=== PATIENT | female | born 1945 | race Caucasian/White ===

== ENCOUNTER 2022-07-19 13:14 | Outpatient (CLI) | payer MEDICARE, OTHER, SELFPAY ==
--- NOTE | 2022-07-19 13:40 | CRLHL7_ITS ---
For Patients: As a result of the Cures Act, medical imaging exams and procedure reports are released immediately into your electronic medical record. You may view this report before your referring provider. If you have questions, please contact your health care provider. BILATERAL SCREENING MAMMOGRAM WITH COMPUTER-AIDED DETECTION AND TOMOSYNTHESIS TECHNIQUE: CC and MLO views were obtained. These mammographic images have been obtained using full-field digital technique. These mammographic images were interpreted with the benefit of computer-aided detection. Breast Tomosynthesis was used in this interpretation. COMPARISON FILM: 04/21/20, 03/06/18, 01/16/17. FINDINGS: There are scattered areas of fibroglandular density IMPRESSION: There is no radiographic evidence for malignancy. ASSESSMENT: BI-RADS Category 1: Negative RECOMMENDATION: Routine screening mammogram in 1 year. A lay language report of this examination will be provided to the patient. Ortega Washington M.D. Diagnostic Radiologist [email or web address] Transcribed: 2:05 p.pam carlson/Dictated by: Ortega Washington MD @ 07/20/2022 10:13:00 AM (Electronically Signed)
== END 2022-07-19 13:15 | disposition home or self-care (01) ==
LOC: MAMMO 13:15
PROVIDERS: PCP Internal Medicine; Visit Provider Internal Medicine
DX: Z12.31 Encounter for screening mammogram for malignant neoplasm of breast (principal)
CPT/HCPCS: 77063; 77067

== ENCOUNTER 2022-08-31 10:00 | Outpatient (CLI) | payer MEDICARE, OTHER, SELFPAY | END 2022-08-31 10:01 | disposition home or self-care (01) | PROVIDERS: PCP Internal Medicine; Visit Provider Internal Medicine | DX: R53.83 Other fatigue (principal); E78.5 Hyperlipidemia, unspecified; R73.03 Prediabetes; Z13.29 Encounter for screening for other suspected endocrine disorder; I10 Essential (primary) hypertension; M85.80 Other specified disorders of bone density and structure, unspecified site; G47.33 Obstructive sleep apnea (adult) (pediatric) | CPT/HCPCS: 82728; 84443 ==

== ENCOUNTER 2022-10-16 09:13 | Outpatient (CLI) | payer MEDICARE, OTHER, SELFPAY | END 2022-10-16 09:14 | disposition home or self-care (01) | LOC: NFLDREF 10-17 11:06 | PROVIDERS: PCP Internal Medicine; Referring Provider Internal Medicine; Visit Provider Internal Medicine | DX: R73.03 Prediabetes (principal); E78.5 Hyperlipidemia, unspecified; I10 Essential (primary) hypertension | CPT/HCPCS: 80061 ==

== ENCOUNTER 2023-04-20 08:44 | Outpatient (CLI) | payer MEDICARE, OTHER, SELFPAY | END 2023-04-20 08:45 | disposition home or self-care (01) | LOC: NFLDREF 04-23 08:04 | PROVIDERS: PCP Internal Medicine; Referring Provider Internal Medicine; Visit Provider Internal Medicine | DX: E78.5 Hyperlipidemia, unspecified (principal); I10 Essential (primary) hypertension; R73.03 Prediabetes | CPT/HCPCS: 80053; 80061 ==

== ENCOUNTER 2023-06-07 12:44 | Outpatient (RCR) | payer MEDICARE, OTHER, SELFPAY ==
--- NOTE | 2023-06-07 15:54 | PT.OPEX ---
PT [facility] PT [facility] Outpatient Eval Start: 06/07/23 11:04 Freq: Status: Active Protocol: Document 06/07/23 11:05 CRP (Rec: 06/07/23 15:49 CRP [id number]) E-signed By Zachery Barrios PT Physical Therapy Outpatient Evaluation Insurance Information Recert Due Date 09/05/23 Insurance Name Medicare B Medical Diagnosis Right shoulder rotator cuff tendinopathy Treating Diagnosis R shoulder pain R shoulder stiffness R shoulder weakness Referring MD Dr Augustine Subjective Subjective Pt reports that this Fall she began having R shoulder pain. Pain increases with raising her arm especially out to the side. Heat has been helpful at the shoulder. No numbness or tingling. Pain is moderate . Pt also reports several months of aching into bilateral thighs and down to the lower leg. Will times of burning pain. These sxs only seem to be at night. Also notes LBP that is there most of the time. Was working with a chiropractor. Current Work Status Retired Preferred Name Coco Objective Range of Motion Shoulder ROM AROM FLex L WNL, R 100 with pain Abd L WNL, R 110 with pain ER L WNL R WNL IR - hand up back to L1 with pain SHoulder PROM Flex 150 deg with pain Abd 155 deg with pain ER WNL IR 65 deg with pain Cervical ROM FLex WNL Ext min/mod dec R rot mod dec L rot Mod dec Strength MMT SHoulder abd R 4/5 with mild pain ER R 4/5 with mild pain IR R WNL Ext R WNL Palpation Palpable pain R interscap region Palpable pain R ant shoulder Sensation/Reflexes Sensation intact to light touch Other/Pertinent Objective Joint play: GH jt shows post and inf glide restriction Bilat ER resistance + for shoulder pain BIlat IR testing WNL Assessment Assessment/Impression Pt presents to the clinic with signs and sxs consistent with R RC tendinopathy and GH jt painful hypomobility. Skilled PT is necessary to incorporate ther ex, nm linda, manual therapy and pt education to decrease pain and improve functional mobility. Primary Functional Limitations Dressing Lifting reaching over head Plan of Care Rehabilitation Potential Excellent Physical Therapy Goals 1. Pt will be independent with HEP in 8 weeks. 2. Pt will don/doff clothing without pain in 10 weeks. 3. Pt will complete machine assembler with 80% decrease in pain in 12 weeks. Coordination/Communication With Referral Source Treatment Plan/Direct Interventions Joint Mobilization,Manual Therapy,Neuromuscular Re-ed, Self-Care/Home Management, Therapeutic Activities, Therapeutic Exercises Patient Will Be Discharged From Therapy Completion of LTG(s),Skills Plateau,Independent w/HEP, Independently Progressing Evaluation Billing Untimed Code Treatment Minutes 30 Complexity Moderate Certification Information Initial Certification Date 06/07/23 Ending Certification Date 09/05/23 Provider Signature Shows Agreement With POC & Medical Necessity Physician Signature & Date Requested Please Sign/Date Here Physician Comment/Change : Physician NPI Number #
== END 2023-10-05 23:59 | disposition home or self-care (01) ==
PROVIDERS: PCP Internal Medicine; Visit Provider Internal Medicine
DX: M67.911 Unspecified disorder of synovium and tendon, right shoulder (principal); M25.511 Pain in right shoulder; M25.611 Stiffness of right shoulder, not elsewhere classified; R29.898 Other symptoms and signs involving the musculoskeletal system; Z51.89 Encounter for other specified aftercare
CPT/HCPCS: 97110; 97140; 97162

== ENCOUNTER 2023-09-13 10:59 | Outpatient (CLI) | payer MEDICARE, OTHER, SELFPAY | END 2023-09-13 11:00 | disposition home or self-care (01) | LOC: NFLDREF 10:59 | PROVIDERS: PCP Internal Medicine; Visit Provider Internal Medicine | DX: M85.80 Other specified disorders of bone density and structure, unspecified site (principal); E78.5 Hyperlipidemia, unspecified; E11.9 Type 2 diabetes mellitus without complications; I10 Essential (primary) hypertension; R53.83 Other fatigue | CPT/HCPCS: 80053; 80061; 82043; 82306; 82570 ==

== ENCOUNTER 2023-10-17 14:51 | Outpatient (CLI) | payer MEDICARE, OTHER, SELFPAY ==
--- OUTSIDE RECORDS SUMMARY | 2023-10-17 14:54 | XMS_ITS | Clinical Summary ---
Author Name Unknown Organization [facility] er Address [address] [place] [address] Care Team Providers Care Supervisor Fiber Locking Name Role Phone Latonya Staton DNP, PHARMACY ASSISTANT, RESEARCH DAIRY FARM SUPERVISOR Primary Care Prov ider Allergies Active Allergy Reactions Criticality Noted Date Comments Erythromycin Nausea And Vomiting 08/29/2023 Penicillins Shortness of breath,Swelling High 2023 Medications Medication Sig Dispensed Refills Start Date End Date Status AMLODIPINE BESYLATE PO Take 10 mg by mouth daily 0 Active aspirin 81 MG chewable tablet Chew 1 tablet (81 mg total) 1 (one) time each day 0 Active Calcium Carb-Cholecalcife rol (CALCIUM 600 + D PO) Take 1 tablet by mouth daily 0 Active cholecalciferol (VITAMIN D-3 SUPER STRENGTH) 50 MCG (2000 UT) tablet Take 1 tablet (2,000 Units total) by mouth 1 (one) time each day 0 Active B-COMPLEX, FOLIC ACID, PO Take 1 tablet by mouth daily 0 Active simvastatin (ZOCOR) 20 MG tablet Take 1 tablet (20 mg total) by mouth every night 0 Active diphenhydrAMINE (BENADRYL) 25 MG tablet Take 1 tablet (25 mg total) by mouth at night if needed for sleep 0 Active MAGNESIUM GLYCINATE PO Take 240 mg by mouth at bed time 0 Active traZODone (DESYREL) 50 MG tabletIndications :Primary insomnia Take 1 tablet (50 mg total) by mouth at night if needed for sleep 90 tablet 0 10/01/2023 12/30/2023 Active traZODone (DESYREL) 50 MG tabletIndications :Primary insomnia Take 1 tablet (50 mg total) by mouth at night if needed for sleep 30 tablet 0 08/29/2023 10/01/2023 Discontinued( Reorder) Active Problems Problem Noted Date Diagnosed Date Chronic insomnia 09/28/2023 JAM (obstructive sleep apnea) 09/28/2023 Encounters Date Type Department Care Team Description 10/01/2023 Telephone [facility] Sleep Medicine [address] [place] [id number] Jaciel Simon MD 10/01/2023 Refill Family Medicine 4th Floor [address] [place] [address] Latonya Staton DNP, JESSICA, RESEARCH DAIRY FARM SUPERVISOR Primary insomnia 10/01/2023 Telephone [facility] Sleep Medicine [address] [place] [address] Jaciel Simon MD 09/29/2023 4:20 PM CDT Ancillary Procedure [facility] Sleep [address] [place] [address] JAM (obstructive sleep apnea) (Primary Dx) 09/28/2023 11:40 AM CDT Clinical Support [facility] Sleep Medicine [address] [place] [address] JAM (obstructive sleep apnea) 09/28/2023 10:40 AM CDT Office Visit [facility] Sleep Medicine [address] [place] [id number] Jaciel Simon MD JAM (obstructive sleep apnea) (Primary Dx); Chronic insomnia 08/29/2023 1:30 PM CDT Office Visit Internal Medicine [address], [place] [address] Latonya Staton DNP, JESSICA, RESEARCH DAIRY FARM SUPERVISOR Primary insomnia (Primary Dx); JAM on CPAP; Encounter for medical examination to establish care; Pre-diabetes; Screening for thyroid disorder; Hyperlipidemia, unspecified hyperlipidemia type; Hypovitaminosis D; Osteopenia, unspecified location from Last 3 Months Social History Tobacco Use Types Packs/Day Years Used Date Smoking Tobacco: Never Smokeless Tobacco: Never Alcohol Use Standard Drinks/Week Comments Yes 0 (1 standard drink = 0.6 oz pur e alcohol) Humiliation, Afraid, Rape, and Kick questionnair e Answer Date Recorded Within the last year, have y ou been afraid of your partner or ex-partner? No 08/29/2023 Within the last year, have y ou been humiliated or emotionally abused in other ways by your partner or ex-partner? No Within the last year, have y ou been kicked, hit, slapped, or otherwise physically hurt by your partner or ex-partner? No 08/29/2023 Within the last year, have y ou been raped or forced to have any kind of sexual activity by your partner or ex-partner? No 08/29/2023 Social Connection and Isolat ion Panel [NHANES] Answer Date Recorded Frequency of Communication w ith Friends and Family Not on file 08/29/2023 How often do you get togethe r with friends or relatives? More than three times a week 08/29/2023 Attends Alevism Services Not on file 08/28 Do you belong to any clubs o r organizations such as sabianism groups, unions, fraternal or athletic groups, or school groups? Yes 08/29/2023 How often do you attend meet ings of the clubs or organizations you belong to? More than 4 times per year 08/29/2023 Are you , , di vorced, , never , or living with a partner? 08/29/2023 AUDIT-C Answer Date Recorded Q1: How often do you have a drink containing alcohol? Never 08/29/2023 Q2: How many drinks containi ng alcohol do you have on a typical day when you are drinking? Patient does not drink Q3: How often do you have si x or more drinks on one occasion? Never 08/29/2023 Overall Financial Resource Strain (CARDIA) Answe r Date Recorded How hard is it for you to pa y for the very basics like food, housing, medical care, and heating? Not hard at all 08/29/2023 PHQ-2 Answer Date Recorded PHQ-9 Total Score 0 08/29/2023 [facility] of Occupat ional Health - Occupational Stress Questionnaire Answer Date Recorded Do you feel stress - tense, restless, nervous, or anxious, or unable to sleep at night because your mind is troubled all the time - these days? To some extent 08/29/2023 Exercise Vital Sign Answer Date Recorde d On average, how many days pe r week do you engage in moderate to strenuous exercise (like a brisk walk)? 5 days Minutes of Exercise per Session Not on file 08/29/2023 Hunger Vital Sign Answer Date Recorded Within the past 12 months, y ou worried that your food would run out before you got the money to buy more. Never true 08/29/19 24 Within the past 12 months, t he food you bought just didn't last and you didn't have money to get more. Never true 08/29/2023 PRAPARE - Transportation Answer Date Re corded In the past 12 months, has l ack of transportation kept you from medical appointments or from getting medications? No 08/16 In the past 12 months, has l ack of transportation kept you from meetings, work, or from getting things needed for daily living? No 08/29/2023 Housing Stability Vital Sign Answer Bob e Recorded In the last 12 months, was t here a time when you were not able to pay the mortgage or rent on time? No 08/29/2023 In the last 12 months, how many places have you lived? 1 08/29/2023 In the last 12 months, was t here a time when you did not have a steady place to sleep or slept in a penitentiary (including now)? No 08/29/2023 Sex and Gender Information Value Date Recorded Sex Assigned at Not on file Gender Identity Not on file Sexual Orientation Not on file Last Filed Vital Signs Vital Sign Reading Time Taken Comments Blood Pressure 143/69 09/28/2023 10:26 AM CDT Pulse 74 09/28/2023 10:26 AM CDT Temperature 37 ??C (98.6 ??F) 09/28/2023 10:26 AM CDT Respiratory Rate 16 09/28/2023 10:26 AM CDT Oxygen Saturation 98% 09/28/2023 10:26 AM CDT Inhaled Oxygen Concentration - - Weight 78.9 kg (174 lb) 09/28/2023 10:26 AM CDT Height 165.5 cm (5' 5.16) 09/28/2023 10:26 AM C DT Body Mass Index 28.82 09/28/2023 10:26 AM CDT Plan of Treatment Health Maintenance Due Date Last Done Comments Medicare Annual Wellness Visit (AWV) 1963 Pneumococcal Vaccine: 65+ Years (1 of 1 - PCV) 2010 Mammogram 04/21/2021 04/21/2020, 04/08/2019 Bone Density Scan 04/14/2024 04/14/2019 Fall Risk Performed 08/28/2024 08/29/2023 DTaP,Tdap,and Td Vaccines (3 - Td or Tdap) 07/27/2031 07/27/2021, 03/07/2011, 12/01/2002, Additional history exists Zoster Vaccines Completed 11/13/2018, 08/16, 03/04/2009 Influenza Vaccine Completed 03/05/2023, , 04/14/2016, Additional history exists COVID-19 Vaccine Completed 04/18/2023, , 01/03/2022, Additional history exists HPV Vaccines Aged Out No longer eligi ble based on patient's age to complete this topic Care Teams Supervisor Fiber Locking Relationship Specialty Start Date End Date Latonya Staton, KIKE, PHARMACY ASSISTANT, RESEARCH DAIRY FARM SUPERVISOR [address], [place] [address] PCP - General Internal Medicine 08/29/23
--- OUTSIDE RECORDS SUMMARY | 2023-10-17 14:54 | XMS_ITS | Encounter Summary ---
Author Name Unknown Organization [facility] er Address [address] [place] [address] Care Team Providers Care Stock Replenisher Name Role Phone Latonya Staton DNP, TOUCHER UP, TRUSS ASSEMBLER Primary Care Prov ider Encounter Details Date Type Department Care Team (Late st Contact Info) Description 10/01/2023 Telephone [facility] Sleep Medicine [facility] [address] [address] Jaciel Simon MD [address] [address] Social History Tobacco Use Types Packs/Day Years [...] than three times a week 08/29/2023 Attends Catholic Services Not on file 08/28 Do you belong to any clubs o r organizations such as congregational groups, unions, fraternal or athletic groups, or [...] Date Recorded PHQ-9 Total Score 0 08/29/2023 [facility] of Occupat ional Health - Occupational Stress [...] place to sleep or slept in a detention (including now)? No 08/29/2023 Sex and Gender Information Value Date Recorded Sex Assigned at Not on file Gender Identity Not on file Sexual Orientation Not on file documented as of this encounter Miscellaneous Notes * Telephone Encounter - Jaciel Simon MD - 10/01/2023 4:42 PM CDT Thank you * Telephone Encounter - Guillermo Mike RN - 10/01/2023 4:[address] Alfred Clarke I called patient and provided overnight oximetry results as verbally requested: Results were consistent with mild apnea but there were no signs of hypoxemia. We will re-evaluate CPAPdownload in two weeks on 10/15/2023. Patient will be bringing in PAP to [facility] for download. Reminder created. Thanks! documented in this encounter Plan of Treatment Not on file documented as of this encounter Visit Diagnoses Not on filedocumented in this encounter Care Teams Stock Replenisher Relationship Specialty Start Date End Date Latonya Staton, DNP, TOUCHER UP, TRUSS ASSEMBLER [address] [place] [address] PCP - General Internal Medicine 08/29/23 documented as of this encounter
--- OUTSIDE RECORDS SUMMARY | 2023-10-17 14:55 | XMS_ITS | Encounter Summary ---
Author Name Unknown Organization [facility] er Address [address] [place] [address] Care Team Providers Care Math And Physics Instructor Name Role Phone Latonya Staton DNP, JESSICA, INSERTING PRESS OPERATOR Primary Care Prov ider Reason for Visit * Reason Comments Consult Sleep Apnea * Consultation (Routine) - Authorized Specialty Diagnoses / Procedures Referred By Annette jason Referred To Contact Sleep Medicine Diagnoses JAM on CPAP Latonya Staton DNP, JESSICA, INSERTING PRESS OPERATOR [address] [place] [address] [facility] Sleep Medicine [address] [place] [id number] Referral ID Status Reason Start Date Expiration Date Visits Requested Visits Authorized [id number] Authorized Specialty Services Required 08/29/2023 08/28/2024 1 1 Encounter Details Date Type Department Care Team (Late st Contact Info) Description 09/28/2023 10:40 AM CDT Office Visit [facility] Sleep Medicine [address] [place] [phone] Jaciel Simon MD [address] [address] JAM (obstructive sleep apnea) (Primary Dx); Chronic insomnia Social History Tobacco Use Types Packs/Day Years [...] than three times a week 08/29/2023 Attends Congregational Services Not on file 08/28 Do you belong to any clubs o r organizations such as mandaen groups, unions, fraternal or athletic groups, or [...] Date Recorded PHQ-9 Total Score 0 08/29/2023 [facility] of Occupat ional Health - Occupational Stress [...] place to sleep or slept in a senior care (including now)? No 08/29/2023 Sex and Gender Information Value Date Recorded Sex Assigned at Not on file Gender Identity Not on file Sexual Orientation Not on file documented as of this encounter Last Filed Vital Signs Vital Sign Reading [...] Mass Index 28.82 09/28/2023 10:26 AM CDT documented in this encounter Progress Notes * Jaciel Simon MD - 09/28/2023 10:40 AM CDT HPI Mrs. Hare is very pleasant 78 years old female reported to our clinic to establish care for obstructive sleep apnea, she was started on ResMed machine initially then she was switch to Leilani machine, she is not happy with the new machine and she feels tired when she wakes up in the morning she was hoping to get a different machine. Seen in 2018 she had repeat sleep study did show that she has moderate obstructive sleep apnea with AHI 15, her AHI has responded to CPAP titration with pressure of 10and her residual AHI at that pressure was 10.3, currently she is on auto CPAP pressure 5-15, I havereviewed her compliance report, patient compliant her compliance rate 73%, average use is 5 hours and 46 minutes, 95 percentile pressure is 9 cm H2O, mask leak is 8.5 L/min, average AHI of 1.6 event per hour. Patient denies any sleep paralysis, any sleep hallucination, any cataplexy, any parasomnia, any restless leg symptoms, anyhow she does have chronic leg pains and back pain which sometimes can wake her up from sleep. Patient has chronic insomnia, she is having difficulty falling asleep, and staying sleep. She started on Benadryl but when she was saw her primary care provider started her on trazodone, the trazodone seem to be working just fine according to the patient but she still sometimes wake up during the night and not able to fall back to sleep and she spent time on her cell phone or watching TV, patientstated that she goes to bed room at 830 staying there till 11 watching news and then at 11 she takeher medication and try to fall asleep. She denies any excessive caffeine use, no alcohol use, no recreational substances, patient does notsmoke, no heart disease, no lung disease, Patient not excessively sleepy during the day her [place] score is 7 She goes to bed at 11 PM, take her 30 minutes for sleep, wake up at 7:30 AM, in between she wakes up 1 time to go to the bathroom, when she wakes up in the morning she still feeling tired and not refreshed. The following portions of the patient's chart were reviewed in this encounter and updated as appropriate: Allergies Meds Problems Med Hx Surg Hx Fam Hx Review of Systems Constitutional: Negative. HENT: Negative. Eyes: Negative. Respiratory: Negative. Cardiovascular: Negative. Gastrointestinal: Heartburn Endocrine: Negative. Genitourinary: Negative. Musculoskeletal: Joint pain Skin: Negative. Neurological: Negative. Psychiatric/Behavioral: Negative. Physical Exam Constitutional: Appearance: Normal appearance. HENT: Head: Normocephalic and atraumatic. Nose: Nose normal. Mouth Mallampati 4 Lung Good air movement no wheezes. Heart Regular rate and rhythm no murmurs Musculoskeletal: General: Normal range of motion. Cervical back: Normal range of motion and neck supple. Skin: General: Skin is warm and dry. Neurological: General: No focal deficit present. Mental Status: He is alert. Psychiatric: Mood and Affect: Mood normal. Behavior: Behavior normal. Assessment/Plan Poor sleep hygiene Chronic insomnia Moderate obstructive sleep apnea on CPAP therapy Morning fatigue Plan Patient is benefiting from using CPAP and is compliant with treatment because of that I would recommend to continue auto CPAP at the current setting no adjustment is needed, we will see the patient on yearly basis to ensure compliance and treatment effectiveness and to renew the patient prescription, otherwise patient was advised to avoid driving while feeling sleepy and tired and all patient questions and concerns were answered to their satisfaction and the patient in agreement with the plan Due to patient continued to express fatigue in the morning and feeling not refreshed we will obtainovernight pulse oximetry to ensure that patient not having nocturnal hypoxemia while she is using her CPAP. I informed patient she will be eligible for new machine in 2 years from now. I will contactthe patient with the result of her overnight pulse oximetry and with further recommended if applicable For chronic insomnia discussed with the patient sleep hygiene including not going to the bedroom unless she is feeling sleepy and tired, do not spend time watching TV in her bedroom, avoid any brightlight after 10 PM, avoid any naps in the afternoon. At this time she is getting trazodone I think it is okay to continue trazodone for now until she started practicing sleep hygiene, after that we will reevaluate for the need for trazodone, preferably we would like to stop trazodone at some point. If patient continue to express insomnia and spite of practicing sleep hygiene at that point we should consider referring patient for CBT-I. Total time spent this visit is 61 minutes including [id number] encounter, chart review, patient counseling, patient education, and documentation. documented in this encounter Plan of Treatment Scheduled Orders Name Type Priority Associated Diagnoses Orde r Schedule AMB Overnight Oximetry Sleep Center Routine JAM (obstructive sleep apnea) Expected: 09/28/2023, Expires: 10/28/2023 documented as of this encounter Visit Diagnoses Diagnosis JAM (obstructive sleep apnea)- Primary Obstructive sleep apnea (adult) (pediatric) Chronic insomnia Insomnia, unspecified documented in this encounter Care Teams Math And Physics Instructor Relationship Specialty Start Date End Date Latonya Staton DNP, SENIOR MATERIALS PLANNER, INSERTING PRESS OPERATOR [address], [place] [address] PCP - General Internal Medicine 08/29/23 documented as of this encounter
--- OUTSIDE RECORDS SUMMARY | 2023-10-17 14:55 | XMS_ITS | Encounter Summary ---
Author Name Unknown Organization [facility] er Address [address] [place] [address] Care Team Providers Care Manager Event Name Role Phone Latonya Staton DNP, TESTING AND REGULATING TECHNICIAN, HOME APPLIANCE INSTALLER Primary Care Prov ider Encounter Details Date Type Department Care Team (Latest Contact Info) Description 09/28/2023 11:40 AM CDT Clinical Support [facility] 52 Sleep Medicine [address] [address] JAM (obstructive sleep apnea) Social History Tobacco Use Types Packs/Day Years [...] than three times a week 08/29/2023 Attends Restorationist Services Not on file 08/28 Do you belong to any clubs o r organizations such as religion groups, unions, fraternal or athletic groups, or [...] Date Recorded PHQ-9 Total Score 0 08/29/2023 [facility] of Occupat ional Health - Occupational Stress [...] place to sleep or slept in a assisted (including now)? No 08/29/2023 Sex and Gender Information Value Date Recorded Sex Assigned at Not on file Gender Identity Not on file Sexual Orientation Not on file documented as of this encounter Plan of Treatment Not on file documented as of this encounter Visit Diagnoses Diagnosis JAM (obstructive sleep apnea) Obstructive sleep apnea (adult) (pediatric) documented in this encounter Care Teams Manager Event Relationship Specialty Start Date End Date Latonya Staton, KIKE, TESTING AND REGULATING TECHNICIAN, HOME APPLIANCE INSTALLER [address], [place] [address] PCP - General Internal Medicine 08/29/23 documented as of this encounter
--- OUTSIDE RECORDS SUMMARY | 2023-10-17 14:55 | XMS_ITS | Clinical Summary ---
Author Name Unknown Organization [facility] Address [place], [place] [address] Care Team Providers Care Travel Registered Nurse Icu Name Role Phone Bela Mccoy AuD Unavailable [phone] Ast[facility], [facility] Unavailable Elena Edelmira Ames MD Primary Care Provider Unavail able Allergies Active Allergy Reactions Criticality Noted Date Comments Hymenoptera Allergenic Extract Throat Swelling/Closing,Humera phylaxis High 11/22/2012 Needs epi pen Needs epi pen Erythromycin GI Upset 11/28/2006 Penicillins Rash 11/28/2006 Prednisone Agitation,Anxiety 05/22/2014 overeating overeating Medications Medication Sig Dispensed Refills Start Date End Date Status ibuprofen (ADVIL; MOTRIN) 200 mg tabletIndications:N sharon pain Take 4 tablets by mouth 3 times daily if needed. 0 08/29/2013 Active multivitamin chew Take 1 tablet by mouth once daily. 0 01/25/2015 Active cholecalciferol (VITAMIN D) 1,000 unit capsule Take 1 capsule by mouth once daily. 0 11/13/2018 Active ascorbic acid, vitamin C, (VITAMIN C) 1,000 mg tablet Take 1 tablet by mouth once daily. 0 04/01/2020 Active b complex vitamins (VITAMIN B COMPLEX) capsule Take 1 capsule by mouth once daily. 0 04/01/2020 Active EPINEPHrine (EPIPEN) 0.3 mg/0.3 mL injectionIndication s:Bee sting allergy Inject 0.3 mg intramuscular one time if needed for Allergic Reaction. 1 Each 5 04/15/2020 Active blood sugar diagnostic (FREESTYLE LITE STRIPS) stripIndications:Ne wly diagnosed diabetes (HC) Dispense item covered by pt ins. E11.9 NIDDM type II - Test 4 times/day. Reason New Diagnosis 400 Each 3 05/12/2020 Active diclofenac topical (VOLTAREN) 1 % gelIndications:Pain in both knees, unspecified chronicity Apply 2-4 g topically to affected area(s) 4 times daily. 1 Tube 3 09/02/2020 Active fexofenadine (PURA) 180 mg tabletIndications:S easonal allergies Take 180 mg by mouth once daily. Do not crush or chew. 90 Tablet 3 11/02/2020 Active aspirin 81 mg cap Take by mouth. 0 08/02/2021 Act mt amLODIPine (NORVASC) 2.5 mg tabletIndications:H TN (hypertension) Take 2 Tablets (5 mg) by mouth once daily. 90 Tablet 1 08/30/2021 Active Additional Information Patient taking differently: 10 mgOral DAILY, Reported on 09/19/2023 diphenhydrAMINE (BENADRYL) 25 mg capsule Take 1 Capsule (25 mg) by mouth every 4 hours if needed. 0 06/29/2022 Active CPAPIndications:JAM (obstructive sleep apnea) CPAP machine for home use at pressure 5-16 cmw, full face mask x1/3month with a full face cushion x1/3month 1 Each 11 08/08/2022 Active simvastatin (ZOCOR) 20 mg tablet Take 20 mg by mouth at bedtime. 04/23/2023 Active traZODone (DESYREL) 50 mg tablet Take 50 mg by mouth at bedtime. 08/29/2023 Active Glucosamine HCl-MSM (GLUCOSAMINE MSM) 1,500-500 mg/30 mL liqd Take one capful daily. 1 Bottle 0 01/25/2015 09/19/19 24 Discontinu ed(*Patien t states no longer taking) lisinopriL (PRINIVIL; ZESTRIL) 10 mg tabletIndications:H TN (hypertension),Newl y diagnosed diabetes (HC) Take 1 tablet by mouth once daily. 90 tablet 3 04/13/2020 09/19/19 24 Discontinu ed(*Patien t states no longer taking) rosuvastatin (CRESTOR) 10 mg tabletIndications:H yperlipidemia, unspecified hyperlipidemia type Take 1 tablet by mouth at bedtime. 90 tablet 3 04/13/2020 09/19/19 24 Discontinu ed(*Patien t states no longer taking) lancetsIndications: Newly diagnosed diabetes (HC) Test Four times per day. 400 Each 3 05/07/2020 09/19/19 24 Discontinu ed(*Patien t states no longer taking) olopatadine (PATANOL) 0.1 % ophthalmic solutionIndications :Seasonal allergies,Seasonal allergic rhinitis due to pollen Place 2 Drops into both eyes 2 times daily. 5 mL 11 10/18/2020 09/19/19 24 Discontinu ed(*Patien t states no longer taking) Active Problems Problem Noted Date Diagnosed Date History of diabetes mellitus 09/02/2020 Overview: Diagnosed with DM March 2020 with A1C = 6.8 Changed diet significantly Seeing [facility] A1C Jul 2020 = 5.6 HTN (hypertension) 09/02/2020 Mixed conductive and sensori neural hearing loss of both ears 11/28/2018 Osteopenia 02/12/2017 Deviated nasal septum 05/22/2014 Photosensitivity 12/27/2012 Bee sting allergy 11/22/2012 Vitamin D deficiency 08/01/2011 Mixed hearing loss, unilateral 09/24/2009 Overview: left Seasonal affective disorder 04/20/2009 JAM 08/05/17, AHI 15 11/29/2006 Overview: Using CPAP Allergic rhinitis, cause unspecified 11/28/2006 Osteoarthritis Resolved Problems Problem Noted Date Diagnosed Date Resolved Date Mixed hyperlipidemia 08/01/2011 014 Menopause 08/01/2011 12/29/2013 Impaired fasting glucose 08/01/2011 Calculus of gallbladder with out mention of cholecystitis or obstruction 08/01/2011 12/29/2013 Colon polyp 12/20/2010 08/01/2011 Overview: Colonoscopy 11/2010 multiple polyps, large polyp to be removed with surgery, repeat in 1 year post surgery Colonoscopy 12/2013 normal repeat in 5 years Colonoscopy 02/2019 polyp, severe diverticuli, consider CT colon in future, colonoscopy not possible due to severe diverticuli Sensorineural hearing loss, unilateral 09/24/2009 08/01/2011 Overview: right ear Depressive disorder, not elsewhere classified 11/29/19 07 12/29/2013 Encounters Date Type Department Care Team Description 09/21/2023 Telephone [facility] [address] [facility] [address] Amelie Pettit, Results 09/19/2023 2:15 PM CDT Ancillary Procedure [facility] [address] [facility] [address] 09/19/2023 2:00 PM CDT Ancillary Procedure [facility] [address] [place] [address] 09/19/2023 1:10 PM CDT Office Visit [facility] [address] [place] [address] Amelie Pettit, Leg Pain/problem (Legs have been painful on and off when sitting for long periods of time. Now having burning and pain in the mornings before getting up. Also having sciatic nerve pain. patient would like xrays ) 09/18/2023 Travel 09/11/2023 Telephone [facility] [address] [facility] [address] Edelmira Augustine MD Appointment Request from Last 3 Months Immunizations Name Administration Dates Next Due Amb Influenza, Inact (High-d ose) (Flu Clinic Only) 03/11/2014 COVID-19 vaccine ([email or web address] 30mcg/0.3mL) PF MDV 09/07/2020,08/17/2020 DT (Age < 7 years) 12/01/2002 Influenza, High-dose Inactivated 04/14/2016,02/16 Influenza, IIV3 (Age >=3 years) 03/07/20 13,03/07/2011,03/01/2010,2008,05/08/2008,04/12/2006 Influenza, Inactivated AIIV4 (Age 65+ Years) Preserv Free 04/01/2020 Influenza, Inactivated IIV3 (Age 65+ Years) Preserv Free 04/07/2019,03/08/2018 Pneumococcal Poly,23-Valent (Pneumovax) 06/05/2016,06/16/2010 Pneumococcal conj 13-Valent (Prevnar 13) 01/25/2015 Td (Age >=7 Years) 12/01/2002 Tdap 03/07/2011 Zoster (Shingrix-RZV, recombinant) 11/13/2018, Zoster (Zostavax-ZVL, live) 03/04/2009 Family History Medical History Relation Name Comments Cancer Father pancreatic canc er- had Whipple Hyperlipidemia Father Hypertension Father Cancer-breast Maternal Aunt Heart Disease Maternal Grandfather Diabetes Mother Heart Disease Mother Stroke Mother Relation Name Status Comments Father Maternal Aunt Maternal Grandfather Mother Social History Tobacco Use Types Packs/Day Years Used Date Smoking Tobacco: Never Smokeless Tobacco: Never Tobacco Cessation:Counseling Given: Yes Alcohol Use Standard Drinks/Week Comments No 0 (1 standard drink = 0.6 oz pur e alcohol) PHQ-2 Answer Date Recorded PHQ-2 TOTAL SCORE 0 09/02/2020 Social Connections Answer Date Recorded Frequency of Communication with Friends and Fami ly 0 09/18/2023 Financial Resource Strain Answer Date R ecorded Difficulty of Paying Living Expenses 3 09/18/2023 Difficulty of Paying Living Expenses Not on file 09/18/2023 Food Insecurity Answer Date Recorded Worried About Running Out of Food in the Last Ye ar 1 09/18/2023 Transportation Needs Answer Date Record ed Lack of Transportation (Medical) 1 09/18/2023 Housing Stability Answer Date Recorded Unable to Pay for Housing in the Last Year 1 09/18/2023 Sex and Gender Information Value Date Recorded Sex Assigned at Not on file Gender Identity Not on file Sexual Orientation Not on file Obstetrics History Para Term AB IAB SAB Ectopic Multiple Livin g Live Births 5 5 Date Outcome GA Total Labor Labor/2nd/3rd Weight Sex Delivery Anes PTL Dorothy A1 A5 Name Cl in Last Filed Vital Signs Vital Sign Reading Time Taken Comments Blood Pressure 134/72 09/19/2023 1:17 PM CDT Pulse 64 09/19/2023 1:17 PM CDT Temperature 36.5 ??C (97.7 ??F) 11/13/2018 2:04 PM CD T Respiratory Rate 20 08/24/2017 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 Oxygen Saturation 97% 09/19/2023 1:17 PM CDT Inhaled Oxygen Concentration - - Weight 78.5 kg (173 lb) 09/19/2023 1:17 PM CDT Height 163.5 cm (5' 4.37) 09/02/2020 1:43 PM CD T Body Mass Index 29.35 09/02/2020 1:43 PM CDT Plan of Treatment Health Maintenance Due Date Last Done Comments Tetanus booster 03/07/2021 03/07/2011, 11/16, 12/01/2002 BMI (ht and wt on same day) for age 18+ 09/02/2021 09/02/2020, 04/01/2020, 04/15/2019, Additional history exists Depression screening for age 12+ 09/02/2021 09/02/2020, 04/01/2020, 04/15/2019, Additional history exists Medicare Wellness for age 65+ 09/03/2021, 04/15/2019, 03/08/2018 Influenza for age 65+ 02/17/2024 04/01/2020 , 04/07/2019, 03/08/2018, Additional history exists Tdap Completed 03/07/2011 Hepatitis C screening for ag e 18-79 Completed 12/29/2013 Pneumococcal series for age 65+ Completed 06/05/2016, 01/25/2015, 06/16/2010 Zoster (shingles) series for age 50+ Completed 11/13/2018, 08/30/2018, 03/04/2009 CT Colonography for age 45-75 Discontinued 02/14/2019 DEXA/DXA scan for age 65+ Completed 2018, 11/22/2012, 06/16/2010 COVID-19 vaccine series Completed 04/18/20, 03/31/2022, 01/03/2022, Additional history exists Procedures Procedure Name Priority Date/Time Associated Diagnosis Comments XR SPINE LUMBAR 3 VIEWS Routine 09/19/2023 2:23 PM CDT Bilateral leg pain XR HIP 1 VIEW W PELVIS BILAT Routine 09/19/2023 2:23 PM CDT Bilateral leg pain XR DXA BONE DENSITY 2 SITES AXIAL Routine 04/14/2019 11:28 AM CDT Osteopenia, unspecified location ANTI HCV Routine 12/29/2013 2:55 PM CDT Routine general medical examination at health care facility from Last 3 Months or Most Recently Relevant to Health Maintenance Results * XR SPINE LUMBAR 3 VIEWS (09/19/2023 2:23 PM CDT) Anatomical Region Laterality Modality LUMBAR SPINE Computed Radiogr aphy 09/20/2023 2:48 PM CDT Impressions 09/20/2023 2:48 PM CDT Degenerative facet arthropathy lower lumbar spine with slight degenerative anterolisthesis of L4 on L5, similar to the prior study. Mild degenerative disc disease L4-5. Dictated by Ortega Washington MD @ 09/20/2023 2:48:23 PM (Electronically Signed) Narrative 09/20/2023 2:48 PM CDT For Patients: ??As a result of the Cures Act, medical imaging exams and procedure reports are released immediately into your electronic medical record. ??You may view this report before your referring provider. ??If you have questions, please contact your health care provider. INDICATION: Bilateral leg pain TECHNIQUE: 3-view lumbar spine. COMPARISON: CT abdomen and pelvis 08/28/2017 FINDINGS: Facet degeneration L5-S1. Slight degenerative anterolisthesis of L4 on L5. Mild disc space narrowing L4-5. No vertebral body compression fracture. Vascular calcifications. Procedure Note Ortega Washington MD - 09/20/2023 For Patients: As a result of the Cures Act, medical imagingexams and procedure reports are released immediately into your electronicmedical record. You may view this report before your referring provider.If you have questions, please contact your health care provider. INDICATION: Bilateral leg pain TECHNIQUE: 3-view lumbar spine. COMPARISON: CT abdomen and pelvis 08/28/2017 FINDINGS: Facet degeneration L5-S1. Slight degenerative anterolisthesis of L4 on L5.Mild disc space narrowing L4-5. No vertebral body compression fracture.Vascular calcifications. IMPRESSION: Degenerative facet arthropathy lower lumbar spine with slight degenerativeanterolisthesis of L4 on L5, similar to the prior study. Mild degenerativedisc disease L4-5. Dictated by Ortega Washington MD @ 09/20/2023 2:48:23 PM (Electronically Signed) Amelie Pettit DO GENERAL IMAGING * XR HIP 1 VIEW W PELVIS BILAT (09/19/2023 2:23 PM CDT) Anatomical Region Laterality Modality HIPS, HIPL, HIPR, Pelvis Compute d Radiography 09/20/2023 2:47 PM CDT Narrative 09/20/2023 2:47 PM CDT For Patients: ??As a result of the Cures Act, medical imaging exams and procedure reports are released immediately into your electronic medical record. ??You may view this report before your referring provider. ??If you have questions, please contact your health care provider. Indication: Bilateral leg pain Technique: Pelvis and both hips 3 views Comparison: None Findings: Spurring at both hip joints noted. No fracture. Chronic osteitis pubis. Mild degenerative changes at the SI joints. Degenerative changes lumbosacral junction. Impression: Mild-moderate degenerative joint disease right hip. Mild degenerative joint disease left hip. Dictated by Ortega Washington MD @ 09/20/2023 2:47:00 PM (Electronically Signed) Procedure Note Ortega Washington MD - 09/20/2023 For Patients: As a result of the Cures Act, medical imagingexams and procedure reports are released immediately into your electronicmedical record. You may view this report before your referring provider.If you have questions, please contact your health care provider. Indication: Bilateral leg pain Technique: Pelvis and both hips 3 views Comparison: None Findings: Spurring at both hip joints noted. No fracture. Chronic osteitis pubis.Mild degenerative changes at the SI joints. Degenerative changeslumbosacral junction. Impression: Mild-moderate degenerative joint disease right hip. Mild degenerativejoint disease left hip. Dictated by Ortega Washington MD @ 09/20/2023 2:47:00 PM (Electronically Signed) Amelie Pettit DO GENERAL IMAGING * (ABNORMAL) XR DXA BONE DENSITY 2 SITES AXIAL (04/14/2019 11:28 AM CDT) Anatomical Region Laterality Modality Spine, HIPS, HIPL, HIPR Other Narrative 04/14/2019 3:29 PM CDT Please see scanned document for results of this study. Martine Daniels MD DEXA * ANTI HCV (12/29/2013 2:55 PM CDT) HEPATITIS C ANTIBODY Non-Reacti ve Non-Reacti ve 12/29/2013 8:10 PM CDT [facility] Blood specimen (specimen) BLOOD SPECIMEN / Unknown Venipuncture / Unknown 12/29/2013 2:55 PM CDT 12/29/2013 2:56 PM CDT Narrative [facility] - 12/29/2013 8:10 PM CDT Antibodies to HCV not detected; does not exclude the possibility of exposure to HCV. Martine Daniels MD SEND OUTS [facility] [address] [place] [address], from Last 3 Months or Most Recently Relevant to Health Maintenance Care Teams Travel Registered Nurse Icu Relationship Specialty Start Date End Date Edelmira Augustine MD PCP - General 06/27/22 Bela Mccoy AuD Audiology 09/30/08 [facility] 02/12/17
--- OUTSIDE RECORDS SUMMARY | 2023-10-17 14:55 | XMS_ITS | Encounter Summary ---
Author Name Unknown Organization [facility] er Address [address] [place] [id number] Care Team Providers Care Corporate Accounting Manager Name Role Phone Latonya Staton DNP, APRN, CNP Primary Care Prov ider Reason for Referral * Imaging (Routine) - Authorized Specialty Diagnoses / Procedures Referred By Annette jason Referred To Contact Radiology Diagnoses Osteopenia, unspecified location Procedures Dexa bone density axial skeleton Latonya Staton DNP, APRN, CNP [address] [place] [id number] Referral ID Status Reason Start Date Expiration Date V isits Requested Visits Authorized [id number] Authorized 08/29/2023 08/28/2024 1 1 * Consultation (Routine) - Authorized Specialty Diagnoses / Procedures Referred By Annette jason Referred To Contact Sleep Medicine Diagnoses JAM on CPAP Latonya Staton DNP, APRN, CNP [address] [place] [id number] Sleep Medicine [address] [address] Referral ID Status Reason Start Date Expiration Date Visits Requested Visits Authorized [id number] Authorized Specialty Services Required 08/29/2023 08/28/2024 1 1 Scheduling Instructions Staff from this department will contact the patient to schedule an appointment. Reason for Visit * Reason Comments Establish Care Encounter Details Date Type Department Care Team (Latest Contact Info) Description 08/29/2023 1:30 PM CDT Office Visit Internal Medicine [address] [place] [address] Latonya Staton, DNP, LAY OUT WORKER, RAT TRAPPER [address] [place] [address] Primary insomnia (Primary Dx); JAM on CPAP; Encounter for medical examination to establish care; Pre-diabetes; Screening for thyroid disorder; Hyperlipidemia, unspecified hyperlipidemia type; Hypovitaminosis D; Osteopenia, unspecified location Social History Tobacco Use Types Packs/Day Years [...] than three times a week 08/29/2023 Attends Hoahaoism Services Not on file 08/28 Do you belong to any clubs o r organizations such as religious groups, unions, fraternal or athletic groups, or [...] Date Recorded PHQ-9 Total Score 0 08/29/2023 [place] [employer] - Occupational Stress [...] place to sleep or slept in a retirement (including now)? No 08/29/2023 Sex and Gender Information Value Date Recorded Sex Assigned at Not on file Gender Identity Not on file Sexual Orientation Not on file documented as of this encounter Last Filed Vital Signs Vital Sign Reading Time Taken Comments Blood Pressure 126/72 08/29/2023 1:02 PM CDT Pulse 68 08/29/2023 1:02 PM CDT Temperature 36.6 ??C (97.8 ??F) 08/29/2023 1:02 PM CD T Respiratory Rate 16 08/29/2023 1:02 PM CDT Oxygen Saturation 97% 08/29/2023 1:02 PM CDT Inhaled Oxygen Concentration - - Weight 78 kg (171 lb 14.4 oz) 08/29/2023 1:02 PM CDT Height 165.5 cm (5' 5.16) 08/29/2023 1:02 PM CD T Body Mass Index 28.47 08/29/2023 1:02 PM CDT documented in this encounter Patient Instructions * Patient Instructions* Latonya Staton DNP, APRN, CNP - 08/29/2023 1:30 PM CDT Ms. Zamora please schedule a DEXA scan to see where your osteopenia. Schedule a fasting labs. I made a referral to sleep medicine and they could help you schedule an appointment. Start taking the 50 mg of trazodone to sleep for 1 week if you do not find it effective you could go up to 2 trazodone per night which is 100 mg. documented in this encounter Progress Notes * Latonya Staton DNP, APRN, CNP - 08/29/2023 1:30 PM CDT Office visit PCP: Latonya Staton DNP, APRN, CNP Subjective Patient ID: Perla Hare is a 78 y.o. female. Chief Complaint Patient presents with Establish Care HPI Establish Care: Ms. Perla perales is a pleasant 78-year-old female presents to internal medicine clinic today to establish care. She has history of obstructive sleep apnea, cerebrovascular disease, overweight, hypertension, hyperlipidemia, and insomnia. Insomnia: She went to obtain a sleep study with a different provider. She was prescribed Benadryl to help hersleep. JAM: She has been using a CPAP and was last checked on 03/2024. Currently has a CPAP but she does not know the CPAP as a good seal she still wakes up tired and fatigue in the morning and sleepy throughoutthe day. The following portions of the patient's chart were reviewed in this encounter and updated as appropriate: Tobacco Allergies Meds OB Status Current Outpatient Medications on File Prior to Visit Medication Sig Dispense Refill AMLODIPINE BESYLATE PO Take 10 mg by mouth daily ASCORBIC ACID PO Take 2,000 mg by mouth daily aspirin 81 MG chewable tablet Chew 1 tablet (81 mg total) 1 (one) time each day Calcium Carb-Cholecalciferol (CALCIUM 600 + D PO) Take 1 tablet by mouth daily cholecalciferol (VITAMIN D-3 SUPER STRENGTH) 50 MCG (2000 UT) tablet Take 1 tablet (2,000 Units total) by mouth 1 (one) time each day diphenhydrAMINE (BENADRYL) 25 MG tablet Take 1 tablet (25 mg total) by mouth at night if needed forsleep MAGNESIUM GLYCINATE PO Take 240 mg by mouth at bed time B-COMPLEX, FOLIC ACID, PO Take 1 tablet by mouth daily simvastatin (ZOCOR) 20 MG tablet Take 1 tablet (20 mg total) by mouth every night No current facility-administered medications on file prior to visit. Allergies Allergen Reactions Penicillins Shortness of breath and Swelling Ak-Mycin [Erythromycin] Nausea And Vomiting Social History Socioeconomic History Marital status: Spouse name: Not on file Number of children: Not on file Years of education: Not on file Highest education level: Not on file Occupational History Not on file Tobacco Use Smoking status: Never Smokeless tobacco: Never Substance and Sexual Activity Alcohol use: Yes Drug use: Never Sexual activity: Not on file Other Topics Concern Not on file Social History Narrative Not on file Social Determinants of Health Financial Resource Strain: Low Risk (08/29/2023) Overall Financial Resource Strain (CARDIA) Difficulty of Paying Living Expenses: Not hard at all Food Insecurity: No Food Insecurity (08/29/2023) Hunger Vital Sign Worried About Running Out of Food in the Last Year: Never true Ran Out of Food in the Last Year: Never true Transportation Needs: No Transportation Needs (08/29/2023) PRAPARE - Transportation Lack of Transportation (Medical): No Lack of Transportation (Non-Medical): No Physical Activity: Unknown (08/29/2023) Exercise Vital Sign Days of Exercise per Week: 5 days Minutes of Exercise per Session: Not on file Stress: Stress Concern Present (08/29/2023) [place] [employer] - Occupational Stress Questionnaire Feeling of Stress : To some extent Social Connections: Unknown (08/29/2023) Social Connection and Isolation Panel [NHANES] Frequency of Communication with Friends and Family: Not on file Frequency of Social Gatherings with Friends and Family: More than three times a week Attends Hoahaoism Services: Not on file Active Member of Clubs or Organizations: Yes Attends Club or Organization Meetings: More than 4 times per year Marital Status: Intimate Partner Violence: Not At Risk (08/29/2023) Humiliation, Afraid, Rape, and Kick questionnaire Fear of Current or Ex-Partner: No Emotionally Abused: No Physically Abused: No Sexually Abused: No Housing Stability: Low Risk (08/29/2023) Housing Stability Vital Sign Unable to Pay for Housing in the Last Year: No Number of Places Lived in the Last Year: 1 Unstable Housing in the Last Year: No No past medical history on file. No past surgical history on file. Review of Systems Constitutional: Negative. HENT: Negative. Eyes: Negative. Cardiovascular: Negative. Negative for chest pain. Respiratory: Positive for snoring. Endocrine: Negative. Hematologic/Lymphatic: Negative. Skin: Negative. Musculoskeletal: Negative. Gastrointestinal: Negative. Genitourinary: Negative. Neurological: Negative. Psychiatric/Behavioral: Negative. Allergic/Immunologic: Negative. Objective Vitals: 08/29/23 1302 BP: 126/72 BP Location: Left arm Patient Position: Sitting BP Cuff Size: Large adult Pulse: 68 Resp: 16 Temp: 36.6 ??C (97.8 ??F) TempSrc: Temporal SpO2: 97% Weight: 78 kg (171 lb 14.4 oz) Height: 1.655 m (5' 5.16) Physical Exam Constitutional: General: She is not in acute distress. HENT: Nose: Nose normal. No nasal discharge. Mouth/Throat: Dentition: Normal. No dental caries. Pharynx: Oropharynx is clear. Normal. Eyes: Conjunctiva/sclera: Conjunctivae normal. Pupils: Pupils are equal, round, and reactive to light. Neck: Thyroid: Thyroid normal. No thyromegaly. Vascular: No JVD. Pulmonary: Effort: Pulmonary effort is normal. Breath sounds: Normal breath sounds. No stridor. No wheezing or rales. Chest: Chest wall: No tenderness. Abdominal: General: Bowel sounds are normal. There is no distension. Palpations: Abdomen is soft. There is no hepatomegaly, splenomegaly or mass. Tenderness: There is no abdominal tenderness. Hernia: No hernia is present. Musculoskeletal: General: No tenderness, deformity or edema. Normal range of motion. Cervical back: Normal range of motion and neck supple. Lymphadenopathy: Cervical: No neck adenopathy. Skin: General: Skin is warm and dry. Coloration: Skin is not jaundiced, pale or plethoric. Findings: No rash. Nails: There is no clubbing or cyanosis. Neurological: Mental Status: She is alert and oriented to person, place, and time. Motor: Motor function is intact. Gait: Gait normal. Physical Exam Constitutional: She appears healthy. No distress. HENT: Tympanic membranes normal. Nose: Nose normal. No nasal discharge. Mouth/Throat: Dentition is normal. No dental caries. Oropharynx is clear. Pharynx is normal. Eyes: Pupils are equal, round, and reactive to light. Conjunctivae are normal. Neck: Thyroid normal. No JVD present. No neck adenopathy. No thyromegaly present. Pulmonary/Chest: Effort normal and breath sounds normal. No stridor. She has no wheezes. She has meir. She exhibits no tenderness. Abdominal: Soft. Bowel sounds are normal. She exhibits no distension and no mass. There is no splenomegaly or hepatomegaly. There is no abdominal tenderness. No hernia. Musculoskeletal: General: No tenderness, deformity or edema. Normal range of motion. Cervical back: Normal range of motion and neck supple. Neurological: She is alert and oriented to person, place, and time. She has normal motor skills. Gait normal. Skin: Skin is warm and dry. No rash noted. No cyanosis. No jaundice, pallor or plethora. Nails showno clubbing. Assessment/Plan Problem List Items Addressed This Visit None Visit Diagnoses Primary insomnia - Primary Relevant Medications traZODone (DESYREL) 50 MG tablet JAM on CPAP Ambulatory referral to Sleep Medicine Encounter for medical examination to establish care Relevant Orders CBC auto differential Comprehensive metabolic panel Pre-diabetes Other Relevant Orders Hemoglobin A1c Screening for thyroid disorder Other Relevant Orders TSH Hyperlipidemia, unspecified hyperlipidemia type Relevant Medications aspirin 81 MG chewable tablet simvastatin (ZOCOR) 20 MG tablet Other Relevant Orders Lipid panel Hypovitaminosis D Other Relevant Orders Vitamin D, Total Osteopenia, unspecified location Calcium Carb-Cholecalciferol (CALCIUM 600 + D PO) cholecalciferol (VITAMIN D-3 SUPER STRENGTH) 50 MCG (1999 UT) tablet Other Relevant Orders Dexa bone density axial skeleton The patient agrees and understands the plan of care. All of her questions were addressed and after visit summary was provided. She will complete the blood work were requested and she will follow-up with sleep medicine for her treatment of obstructive sleep apnea. Total time for today's appointment was 60 minutes, inclusive of time outside of the visit to reviewmedical records, place orders, document the visit, update medical records, and address/milieu counselor patient on current health issue(s). Note created with [employer]: This note/live dictation was created with voice recognition software ([employer]); therefore, it may contain grammatical errors/misspellings/other errors that went unnoticed. documented in this encounter Plan of Treatment Scheduled Orders Name Type Priority Associated Diagnoses Orde r Schedule CBC auto differential Lab Routine Encounter for medical examination to establish care Expected: 08/29/2023, Expires: 08/28/2024 Comprehensive metabolic panel Lab Routine Encounter for medical examination to establish care Expected: 08/29/2023, Expires: 08/28/2024 Hemoglobin A1c Lab Routine Pre-diabetes 1 Occurrences starting 08/29/2023 until 02/29/2024 TSH Lab Routine Screening for thyroid disorder Expected: 08/29/2023, Expires: 08/28/2024 Lipid panel Lab Routine Hyperlipidemia, unspecified hyperlipidemia type 1 Occurrences starting 08/29/2023 until 02/29/2024 Vitamin D, Total Lab Routine Hypovitaminosis D Expected: 08/29/2023, Expires: 08/28/2024 Scheduled Referrals Name Type Priority Associated Diagnoses Order Schedule Ambulatory referral to Sleep Medicine Outpatient Referral Routine JAM on CPAP Ordered: 08/29/2023 documented as of this encounter Visit Diagnoses Diagnosis Primary insomnia- Primary Persistent disorder of initiating or maintaining sleep JAM on CPAP Encounter for medical examination to establish care Pre-diabetes Other abnormal glucose Screening for thyroid disorder Hyperlipidemia, unspecified hyperlipidemia type Hypovitaminosis D Unspecified vitamin D deficiency Osteopenia, unspecified location documented in this encounter Care Teams Corporate Accounting Manager Relationship Specialty Start Date End Date Latonya Staton, KIKE, LAY OUT WORKER, RAT TRAPPER [address] [address] PCP - General Internal Medicine 08/29/23 documented as of this encounter
--- OUTSIDE RECORDS SUMMARY | 2023-10-17 14:55 | XMS_ITS ---
Author Name Unknown Organization [facility] Address [address] [place] [address] Care Team Providers Care Pulmonary Specialist Name Role Phone Unavailable Unavailable Unavailable Surgery Details Not on file Complications Check Surgery Details section. Procedure Estimated Blood Loss Check Surgery Details section. Procedure Findings Check Surgery Details section. Procedure Specimens Taken Check Surgery Details section.
--- OUTSIDE RECORDS SUMMARY | 2023-10-17 14:55 | XMS_ITS | Referral Summary ---
Author Name Unknown Organization [facility] Address [address] [place] [address] Care Team Providers Care Machining Department Supervisor Name Role Phone Unavailable Primary Care Provider Unavailabl e Source Comments Patient records contain information from all sites at [facility]. For routine questions regarding patient records, call [phone] during business hours, M-F 8:00 AM - 5:00 PM Central Time. Record requests for emergency care only can be directed to [phone] at any time.[facility] Allergies Active Allergy Reactions Criticality Noted Date Comments Erythromycin GI intolerance 11/28/2006 Hymenoptera Allergenic Extract Anaphylaxis 12/2012 Needs epi pen Penicillins Rash 11/28/2006 Prednisone Anxiety 05/22/2014 overeating Medications Medication Sig Dispensed Refills Start Date End Date Status cholecalciferol (VITAMIN D3) 50 mcg (2,000 unit) capsule Take 4,000 Units by mouth daily. 11/13/2018 Active EPINEPHrine (EPIPEN) 0.3 mg/0.3 mL injection syringe Inject 0.3 mg intramuscularly. 10/18/2018 Active glucosamine-methylsul fonylmeth 1,500-500 mg/30 mL liquid Take one capful daily. 01/25/2015 Active ibuprofen (ADVIL,MOTRIN) 200 mg tablet Take 800 mg by mouth as needed for pain. 08/29/2013 Active multivitamin chewable tablet Chew 1 tablet. 01/25/2015 Active cyanocobalamin (VITAMIN B12) 500 mcg tablet Take 1,000 mcg by mouth daily. Active ascorbic acid, vitamin C, (VITAMIN C) 500 mg tablet Take 1,000 mg by mouth daily. Active calcium carb/vitamin D3/vit K1 (VIACTIV ORAL) Take by mouth. Active freestyle 28 gauge lancets USE 1 TO CHECK GLUCOSE 4 TIMES DAILY 04/11/2020 Active FreeStyle Lite Meter kit 4 (four) times a day. 04/11/2020 Active blood-glucose meter kit by not applicable route. 04/10/2020 Active FreeStyle Lite Strips strips USE 1 TO TEST 4 TIMES DAILY 04/11/2020 Active betamethasone dipropionate (DIPROLENE) 0.05 % lotion APPLY TO AREAS ON THE SCALP TWICE A DAY FOR 1-2 WEEKS THEN NEEDED WITH FLARES 04/15/2020 Active magnesium oxide (MAG-OX) 400 mg (241.3 mg magnesium) tablet Take 1 mg by mouth daily. Active vitamin E 400 unit capsule Take 400 Units by mouth daily. Active GINKGO BILOBA ORAL Take 120 mg by mouth. Active aspirin 81 mg capsule Take by mouth. 08/02/2021 Active diclofenac sodium (VOLTAREN) 1 % gel Apply 2-4 g topically. 09/02/2020 Active simvastatin (ZOCOR) 20 mg tablet 07/27/2021 Active cholecalciferol (VITAMIN D3) 25 mcg (1,000 Unit) capsule Take 1 capsule by mouth daily. 11/13/2018 Active pyridoxine, vitamin B6, (B-6) 100 mg tablet Take 100 mg by mouth daily. Active amLODIPine (NORVASC) 5 mg tablet Take 10 mg by mouth daily. 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 No 02/17/2022 Within the last year, have y ou been humiliated or emotionally abused in other ways by your partner or ex-partner? No Within the last year, have y ou been kicked, hit, slapped, or otherwise physically hurt by your partner or ex-partner? No 02/17/2022 Within the last year, have y ou been raped or forced to have any kind of sexual activity by your partner or ex-partner? No 02/17/2022 Social Connection and Isolat ion Panel [NHANES] Answer Date Recorded In a typical week, how many times do you talk on the phone with family, friends, or neighbors? More than three times a week 02/17/2022 How often do you get togethe r with friends or relatives? Twice a week 02/17/2022 How often do you attend chur or anglican services? More than 4 times per year 02/17/2022 Do you belong to any clubs o r organizations such as anabaptism groups, unions, fraternal or athletic groups, or school groups? Yes 02/17/2022 How often do you attend meet ings of the clubs or organizations you belong to? More than 4 times per year 02/17/2022 Are you , , di vorced, , never , or living with a partner? 02/17/2022 AUDIT-C Answer Date Recorded Q1: How often do you have a drink containing alc ohol? Never 02/17/2022 Average Number of Drinks Not on file Frequency of Binge Drinking Not on file 07/2021 Overall Financial Resource Strain (CARDIA) Answe r Date Recorded How hard is it for you to pa y for the very basics like food, housing, medical care, and heating? Not hard at all 02/17/2022 [facility] of Occupat ional Health - Occupational Stress Questionnaire Answer Date Recorded Do you feel stress - tense, restless, nervous, or anxious, or unable to sleep at night because your mind is troubled all the time - these days? Only a little 02/17/2022 Exercise Vital Sign Answer Date Recorde d On average, how many days pe r week do you engage in moderate to strenuous exercise (like a brisk walk)? 5 days 02/17/2022 On average, how many minutes do you engage in exercise at this level? 140 min 02/17/2022 Hunger Vital Sign Answer Date Recorded Within the past 12 months, y ou worried that your food would run out before you got the money to buy more. Never true 02/18/20 Within the past 12 months, t he food you bought just didn't last and you didn't have money to get more. Never true 02/17/2022 PRAPARE - Transportation Answer Date Re corded In the past 12 months, has l ack of transportation kept you from medical appointments or from getting medications? No 07/2021 In the past 12 months, has l ack of transportation kept you from meetings, work, or from getting things needed for daily living? No 02/17/2022 Housing Stability Vital Sign Answer Bob e Recorded In the last 12 months, was t here a time when you were not able to pay the mortgage or rent on time? No 02/17/2022 In the last 12 months, how many places have you lived? 1 02/17/2022 In the last 12 months, was t here a time when you did not have a steady place to sleep or slept in a mcc (including now)? No 02/17/2022 Nutrition Answer Date Recorded Nutrition: EVOO Fat Source Yes 02/17 On average, how many serving s of fruits and vegetables do you eat per day (serving size is equal to 1 cup or approximately the size of a tennis ball)? 2-3 02/17/2022 Dental Answer Date Recorded Dental: Regular Dentist Yes 02/18/20 Employment Answer Date Recorded Employment status Retired 02/17/2022 Education Answer Date Recorded What is the highest level of school you have completed or the highest degree you have received? Master's degree (e.g., MA, MS, [employer], MEd, ANALYST COMPETITIVE INTELLIGENCE, [employer]) 04/26/2020 Sex and Gender Information Value Date Recorded Sex Assigned at Female 04/25/2020 3:40 PM POLITICAL CONSULTANT Gender Identity Female 04/25/2020 3:39 PM POLITICAL CONSULTANT Sexual Orientation Straight 04/25/2020 3: 39 PM POLITICAL CONSULTANT Last Filed Vital Signs Vital Sign Reading Time Taken Comments Blood Pressure 135/86 02/21/2022 8:54 AM CDT Pulse 66 02/21/2022 8:54 AM CDT Temperature - - Respiratory Rate - - Oxygen Saturation - - Inhaled Oxygen Concentration - - Weight 73.8 kg (162 lb 11.2 oz) 02/21/2022 8:54 AM CDT Height 163.1 cm (5' 4.21) 02/21/2022 8:54 AM CD T Body Mass Index 27.74 02/21/2022 8:54 AM CDT Plan of Treatment Not on file
--- OUTSIDE RECORDS SUMMARY | 2023-10-17 14:55 | XMS_ITS | Encounter Summary ---
Author Name Unknown Organization [facility] er Address [address] [place] [address] Care Team Providers Care Senior Media Buyer Name Role Phone Latonya Staton DNP, LEARNING DISABLED TEACHER, POISER BALANCE Primary Care Prov ider Encounter Details Date Type Department Care Team (Latest Contact Info) Description 09/29/2023 4:20 PM CDT Ancillary Procedure [facility] Sleep [address] [place] [address] JAM (obstructive sleep apnea) (Primary Dx) Social History Tobacco Use Types Packs/Day Years [...] than three times a week 08/29/2023 Attends [employer] Services Not on file 08/28 Do you belong to any clubs o r organizations such as bahai groups, unions, fraternal or athletic groups, or [...] Date Recorded PHQ-9 Total Score 0 08/29/2023 [facility] of Occupat ional Health - Occupational Stress [...] place to sleep or slept in a group home (including now)? No 08/29/2023 Sex and Gender Information Value Date Recorded Sex Assigned at Not on file Gender Identity Not on file Sexual Orientation Not on file documented as of this encounter Progress Notes * Jaciel Simon MD - 09/29/2023 4:20 PM CDT OVERNIGHT PULSE OXIMETRY Study Date: September 29, 2023 Interpretation date: 10/01/23 Interpretation: This monitoring was presumably performed in the home while patient was wearing her CPAP as a treatment for her obstructive sleep apnea Per the patient survey: she took her regular medication prior to the study. she did not consume alcohol prior to the study. she did but before 3 PM consume caffeine. she did not smoke. Analysis time of 8 hours and 53 minutes. Baseline hemoglobin, oxygen saturation 94.2%. Hemoglobin oxygen desaturation, beny 84%. Cumulative exposure time below 88%, 1.1 minutes. Oxygen desaturation index (ANTONI) 5.4 events/hour. Adjusted index 5.4 events/hour. Impression: Residual mild obstructive sleep apnea after CPAP therapy No significant nocturnal hypoxemia on CPAP therapy Plan At this point I would recommend to increase the auto CPAP pressure to 8-15 follow-up with another download in 2 weeks and consider adjusting the pressure further if needed. Because there is no significant nocturnal hypoxemia there is no need to add oxygen to patient treatment. Result was communicated to the patient with the recommendation as above. All patient questions and concerns were answered to her satisfaction and she verbalized understanding and she is agreement documented in this encounter Plan of Treatment Not on file documented as of this encounter Visit Diagnoses Diagnosis JAM (obstructive sleep apnea)- Primary Obstructive sleep apnea (adult) (pediatric) documented in this encounter Care Teams Senior Media Buyer Relationship Specialty Start Date End Date Latonya Staton, KIKE, LEARNING DISABLED TEACHER, [place] [address] PCP - General Internal Medicine 08/29/23 documented as of this encounter
--- OUTSIDE RECORDS SUMMARY | 2023-10-17 14:55 | XMS_ITS | Clinical Summary ---
Author Name Unknown Organization [facility] Address [address] [place] [address] Care Team Providers Care Communications Tower Climber Name Role Phone Unavailable Primary Care Provider Unavailabl e Source Comments Patient records contain information from all sites at [facility]. For routine questions regarding patient records, call [phone] during business hours, M-F 8:00 AM - 5:00 PM Central Time. Record requests for emergency care only can be directed to [phone] at any time.[facility] Allergies Active Allergy Reactions Criticality Noted Date [...] 11/29/2006 Overview: Using CPAP Rhinitis Allergic 11/28/2006 Family History Medical History Relation Name Comments Arthritis Father Christiano Pancreatic cancer Father Christiano Coronary artery disease Mother Tati 1993 Breast cancer Mother's Sister Ester 1993 Relation Name Status Comments Father [place] Mother Tati Mother's Sister Ester Social History Tobacco Use Types Packs/Day Years [...] week 02/17/2022 How often do you attend [facility] or islam services? More than 4 times per year 02/17/2022 Do you belong to any clubs o r organizations such as restorationism groups, unions, fraternal or athletic groups, or [...] Average Number of Drinks Not on file 022 Frequency of Binge Drinking Not on file 07/2021 Overall Financial Resource Strain (CARDIA) Answe r Date Recorded How hard is it for you to pa y for the very basics like food, housing, medical care, and heating? Not hard at all 02/17/2022 [facility] [place] of Occupat ional Health - Occupational Stress [...] place to sleep or slept in a alf (including now)? No 02/17/2022 Nutrition Answer Date [...] Master's degree (e.g., MA, MS, Pita, MEd, LABORER DAIRY FARM, TYREE) 04/26/2020 Sex and Gender Information Value Date Recorded Sex Assigned at Female 04/25/2020 3:40 PM TRANSACTIONAL PARALEGAL Gender Identity Female 04/25/2020 3:39 PM TRANSACTIONAL PARALEGAL Sexual Orientation Straight 04/25/2020 3: 39 PM TRANSACTIONAL PARALEGAL Last Filed Vital Signs Vital Sign Reading [...] 02/21/2022 8:54 AM CDT Plan of Treatment Health Maintenance Due Date Last Done Comments Hepatitis C Screening 1945 Office Visit for Blood Press ure Check / Re-check 02/21/2023 02/21/2022 Depression Screening (Annual PHQ-2) 06/18/2023 Fall Risk Screen (Annual) 06/18/2023 COVID-19 Vaccine (2022- 4 season) 2023 04/18/2023, 03/31/2022, 01/03/2022, Additional history exists DTaP,Tdap,and Td Vaccines (5 - Td or Tdap) 07/27/2031 07/27/2021, 03/07/2011, 12/01/2002, Additional history exists Pneumococcal vaccine (65+ years) Completed 06/05/2016, 01/25/2015, 06/16/2010 Zoster Vaccines Completed 11/13/2018, 08/16, 03/04/2009 Influenza Vaccine Completed 03/05/2023, , 03/23/2021, Additional history exists
--- OUTSIDE RECORDS SUMMARY | 2023-10-17 14:55 | XMS_ITS | Encounter Summary ---
Author Name Unknown Organization [facility] er Address [address] [place] [address] Care Team Providers Care Line Controller Name Role Phone Latonya Staton DNP, YEAST CAKE CUTTER, REST ROOM MAID Primary Care Prov ider Encounter Details Date Type Department Care Team (Late st Contact Info) Description 10/01/2023 Telephone [facility] Sleep Medicine [facility] [address] [address] Jaciel Simon MD [address] [address] Social History Tobacco Use Types [...] than three times a week 08/29/2023 Attends Cheondoism Services Not on file 08/28 Do you belong to any clubs o r organizations such as buddhist groups, unions, fraternal or athletic groups, or [...] Date Recorded PHQ-9 Total Score 0 08/29/2023 [facility] of Occupat ional Health - [...] place to sleep or slept in a snf (including now)? No 08/29/2023 Sex and Gender Information Value Date Recorded Sex Assigned at Not on file Gender Identity Not on file Sexual Orientation Not on file documented as of this encounter Miscellaneous Notes * Telephone Encounter - Guillermo Mike RN - 10/02/2023 9:07 AM CDT I called patient and notified her of refill. Thanks! * Telephone Encounter - Latonya Staton DNP, JESSICA, SONYA - 10/01/2023 4:58 PM CDT Thank you for the note. The 90 prescription has been filled. * Telephone Encounter - Guillermo Mike RN - 10/01/2023 2:[address] Alfred Clarke I called patient and provided message above. Also sent message to Primary Provider. Thanks! * Telephone Encounter - Guillermo Mike RN - 10/01/2023 2:35 PM CDT Surjits Latonya, Patient requesting refill for Trazodone medication. She was requesting 3 month refill if possible. Please review and advise. * Telephone Encounter - Jaciel Simon MD - 10/01/2023 2:13 PM CDT Please asked the patient to contact your primary care provider office to renew the trazodone prescription for her * Telephone Encounter - Guillermo Mike RN - 10/01/2023 10:[address] Simon - Patient who recently saw you stopped by clinic requesting refill for Trazodone medication (50 mg most recent dose). Looks like this was last filled by Primary Latonya Staton (she said she wasn't sure how to get refill from Latonya). Please review and advise. Patient was asking for trazodone to be filled for 3 months if possible to her [facility]. She requested call back with update [phone]. documented in this encounter Plan of Treatment Not on file documented as of this encounter Visit Diagnoses Not on filedocumented in this encounter Care Teams Line Controller Relationship Specialty Start Date End Date Latonya Staton, DNP, YEAST CAKE CUTTER, REST ROOM MAID [facility] [address] [address] PCP - General Internal Medicine 08/29/23 documented as of this encounter
--- OUTSIDE RECORDS SUMMARY | 2023-10-17 14:55 | XMS_ITS | Encounter Summary ---
Author Name Unknown Organization [facility] er Address [address] [place] [address] Care Team Providers Care School Lunch Monitor Name Role Phone Latonya Staton DNP, DIE CASTING MACHINE SETTER, MATERIALS PLANNING ANALYST Primary Care Prov ider Reason for Visit * Reason Onset Date Comments Med Refill 10/01/2023 Encounter Details Date Type Department Care Team (Late st Contact Info) Description 10/01/2023 [facility] [facility] 4th Floor [address] [place] [address] Latonya Staton DNP, DIE CASTING MACHINE SETTER, MATERIALS PLANNING ANALYST [address] [place] [address] Primary insomnia Social History Tobacco Use Types Packs/Day [...] than three times a week 08/29/2023 Attends Protestant Services Not on file 08/28 Do you belong to any clubs o r organizations such as protestant groups, unions, fraternal or athletic groups, or [...] Date Recorded PHQ-9 Total Score 0 08/29/2023 [facility] of Occupat ional Health - Occupational [...] place to sleep or slept in a fpc (including now)? No 08/29/2023 Sex and Gender Information Value Date Recorded Sex Assigned at Not on file Gender Identity Not on file Sexual Orientation Not on file documented as of this encounter Miscellaneous Notes * Telephone Encounter - Lexis Manriquez LPN - 10/01/2023 4:33 PM CDT Patient would like a 90 day Rx sent to her mail order pharmacy (it costs the same as a 30 day Rx). Pt is out of medication. Upcoming appointment with provider: Visit date not found Last visit in provider department: 08/29/2023 Last visit requested medication was discussed: 08/29/2023 Last Rx: #30 with 0 refills 08/29/2023 Requested Prescriptions Pending Prescriptions Disp Refills traZODone (DESYREL) 50 MG tablet 90 tablet 0 Sig: Take 1 tablet (50 mg total) by mouth at night if needed for sleep Labs: n/a Vitals: BP Readings from Last 2 Encounters: 09/28/23 143/69 08/29/23 126/72 documented in this encounter Plan of Treatment Not on file documented as of this encounter Visit Diagnoses Diagnosis Primary insomnia Persistent disorder of initiating or maintaining sleep documented in this encounter Care Teams School Lunch Monitor Relationship Specialty Start Date End Date Latonya Staton, DNP, DIE CASTING MACHINE SETTER, MATERIALS PLANNING ANALYST [address] [place] [address] PCP - General Internal Medicine 08/29/23 documented as of this encounter
--- NOTE | 2023-10-17 15:00 | XR_ITS ---
Patient: KARLY HARDY Facility:?[facility] Patient ID:?[id number] Site Patient ID:?[id number]. Site :?1945 Study:?DEXA-Bone Density -10/17/2023 3:43:57 PM Ordering Physician:PARMINDER Final Report: DXA BONE MINERAL DENSITY STUDY Reason for exam: Screening. Current height (in): 65. Weight (lb): 170. Menopause age: 54. Ethnicity: White. 1. Have you had a previous hip or vertebral fracture? No. 2. Have you had any fractures during your adult life which did not result from significant trauma (e.g., auto accident)? No. 3. Did either of your parents have a hip fracture? No. 4. Do you smoke? No. 5. Have you ever taken Glucocorticoids? No. 6. Do you have rheumatoid arthritis? No. 7. Do you have secondary osteoporosis? No. 8. Do you drink 3 or more alcoholic drinks per day? No. 9. Are you being treated for osteoporosis? No. 10. Have you ever taken any of the following medications: Actonel, Evista, Fosamax, Miacalcin, Reclast, Boniva, Forteo, HRT (i.e., estrogen/hormone therapy), Protelos, Prolia, Vitamin D, Calcium, other ? please specify. ANSWER: Yes, vitamin D and calcium. 11. Do you have any of the following medical conditions: Anorexia or bulimia, asthma or emphysema, end stage renal disease, hyperparathyroidism, any seizure disorders, cancer, inflammatory bowel diseases, hysterectomy, other ? please specify. ANSWER: No. 12. What was your maximum height (inches)? 65. 13. Do you perform weight bearing exercise regularly? No. 14. Do you regularly consume dairy products? Yes. 15. Do you drink caffeinated beverages? Yes. 16. At what age did your period start? 12. 17. Are you premenopausal? No. 18. How many full-term pregnancies have you had? 5. 19. Have you ever missed your period for more than 6 months in a row (not including or menopause)? No. TECHNIQUE: Bone mineral density study was performed using the [employer]. FINDINGS: The results of the study expressed as bone mineral density (BMD) are as follows: Lumbar spine L1 to L4: BMD: 0.873 g/cm2. T-score: -1.6. Z-score: 1.0 Neck Left: BMD: 0.548 g/cm2. T-score: -2.7. Z-score: -0.5 Right: BMD: 0.637 g/cm2. T-score: -1.9. Z-score: 0.3 Total Left: BMD: 0.713 g/cm2. T-score: -1.9. Z-score: 0.1 Right: BMD: 0.800 g/cm2. T-score: -1.2. Z-score: 0.8 IMPRESSION: Osteoporosis. Kerry GÓMEZK:robyn D& Transcribed: 4:19 p.m. [email or web address] robyn/Dictated by: Jarod Ch MD @ 10/18/2023 8:40:00 AM Signed by:Guilherme Ch MD @10/18/2023 4:22:32 PM (Electronic Signature)
== END 2023-10-17 14:52 | disposition home or self-care (01) ==
PROVIDERS: PCP Internal Medicine; Visit Provider Internal Medicine
DX: Z13.820 Encounter for screening for osteoporosis (principal); M85.88 Other specified disorders of bone density and structure, other site
CPT/HCPCS: 77080

== ENCOUNTER 2023-12-06 14:30 | Outpatient (CLI) | payer MEDICARE, OTHER, SELFPAY ==
--- OUTSIDE RECORDS SUMMARY | 2023-12-06 14:33 | XMS_ITS ---
Author Organization [facility] Address [address] [place] [address] Care Team Providers Care Sergeant Of Corrections Name Role Phone Unavailable Unavailable Unavailable Surgery Details Not on file Complications Check Surgery Details section. Procedure Estimated Blood Loss Check Surgery Details section. Procedure Findings Check Surgery Details section. Procedure Specimens Taken Check Surgery Details section.
--- OUTSIDE RECORDS SUMMARY | 2023-12-06 14:33 | XMS_ITS | Referral Summary ---
Author Organization [facility] Address [address] [place] [address] Care Team Providers Care Division Sales Manager Name Role Phone Unavailable Primary Care Provider Unavailabl e Source Comments Patient records contain information from all sites at [facility]. For routine questions regarding patient records, call [phone] during business hours, M-F 8:00 AM - 5:00 PM Central Time. Record requests for emergency care only can be directed to [phone] at any time.[facility] Allergies Active Allergy Reactions Criticality Noted Date [...] How often do you attend chur or roman catholic services? More than 4 times per year 02/17/2022 Do you belong to any clubs o r organizations such as voodoo groups, unions, fraternal or athletic groups, or [...] and heating? Not hard at all 02/17/2022 [facility] of Occupat ional Health - Occupational [...] place to sleep or slept in a half-way (including now)? No 02/17/2022 Nutrition Answer Date [...] Master's degree (e.g., MA, MS, Pita, MEd, CUSTOMER ENGAGEMENT REPRESENTATIVE, TYREE) 04/26/2020 Sex and Gender Information Value Date Recorded Sex Assigned at Female 04/25/2020 3:40 PM CAMERA TECHNICIAN Gender Identity Female 04/25/2020 3:39 PM CAMERA TECHNICIAN Sexual Orientation Straight 04/25/2020 3: 39 PM CAMERA TECHNICIAN Last Filed Vital Signs Vital Sign Reading [...]
--- OUTSIDE RECORDS SUMMARY | 2023-12-06 14:33 | XMS_ITS | Encounter Summary ---
Author Organization [facility] er Address [address] [place] [address] Care Team Providers Care Pecan Picker Name Role Phone Latonya Staton DNP, APRN, CNP Primary Care Prov ider Reason for Referral * Imaging (Routine) - Authorized Specialty Diagnoses / Procedures Referred By Annette jason Referred To Contact Radiology Diagnoses Osteopenia, unspecified location Procedures Dexa bone density axial skeleton Latnoya Staton DNP, APRN, CNP [address] [place] [id number] Referral ID Status Reason Start Date Expiration Date V isits Requested Visits Authorized [id number] Authorized 08/29/2023 08/28/2024 1 1 * Consultation (Routine) - Authorized Specialty Diagnoses / Procedures Referred By Annette jason Referred To Contact Sleep Medicine Diagnoses JAM on CPAP Latonya Staton DNP, APRN, CNP [address] [place] [address] [id number] Sleep Medicine [address] [address] Referral ID Status Reason Start Date Expiration Date Visits Requested Visits Authorized [id number] Authorized Specialty Services Required 08/29/2023 08/28/2024 1 1 Scheduling Instructions Staff from this department will contact the patient to schedule an appointment. Reason for Visit * Reason Comments Establish Care Encounter Details Date Type Department Care Team (Latest Contact Info) Description 08/29/2023 1:30 PM CDT Office Visit Internal Medicine [address] [place] [address] Latonya Staton, DNP, CLEANING SUPERVISOR, PROFESSIONAL BUILDER [address] [place] [address] Primary insomnia (Primary Dx); JAM on CPAP; [...] than three times a week 08/29/2023 Attends Pentecostalism Services Not on file 08/28 Do you belong to any clubs o r organizations such as anabaptist groups, unions, fraternal or athletic groups, or [...] Date Recorded PHQ-9 Total Score 0 08/29/2023 [facility] of Occupat ional [facility] - Occupational Stress Questionnaire Answer Date Recorded [...] place to sleep or slept in a intermediate (including now)? No 08/29/2023 Sex and Gender [...] on file Stress: Stress Concern Present (08/29/2023) [facility] [place] of Occupational Health - Occupational Stress Questionnaire Feeling of Stress : To some extent Social Connections: Unknown (08/29/2023) Social Connection and Isolation Panel [NHANES] Frequency of Communication with Friends and Family: Not on file Frequency of Social Gatherings with Friends and Family: More than three times a week Attends Pentecostalism Services: Not on file Active Member of [...] cholecalciferol (VITAMIN D-3 SUPER STRENGTH) 50 MCG (1999) tablet Other Relevant Orders Dexa bone density [...] document the visit, update medical records, and address/student counsellor patient on current health issue(s). Note created with Denator: This note/live dictation was created with voice recognition software (Denator); therefore, it may contain grammatical errors/misspellings/other errors that went unnoticed. Electronically signed by Latonya Staton, DNP, CLEANING SUPERVISOR, PROFESSIONAL BUILDER at 08/31/2023 5:30 PM CDT documented in this encounter Plan of Treatment [...] location documented in this encounter Care Teams Pecan Picker Relationship Specialty Start Date End Date Latonya Staton, KIKE, CLEANING SUPERVISOR, PROFESSIONAL BUILDER [address], [place] [address] PCP - General Internal Medicine 08/29/23 documented as of this encounter
--- OUTSIDE RECORDS SUMMARY | 2023-12-06 14:33 | XMS_ITS | Encounter Summary ---
Author Organization [facility] er Address [address] [place] [address] Care Team Providers Care Mental Health Unit Lead Psychologist Name Role Phone Latonya Staton DNP, CLERICAL SUPERVISOR, HYBRID TESTER Primary Care Prov ider Reason for Visit * Reason Comments Consult Sleep Apnea * Consultation (Routine) - Authorized Specialty Diagnoses / Procedures Referred By Annette jason Referred To Contact Sleep Medicine Diagnoses JAM on CPAP Latonya Staton DNP, JESSICA, HYBRID TESTER [address] [place] [address] [facility] Sleep Medicine [address] [place] [address] Referral ID Status Reason Start Date Expiration Date Visits Requested Visits Authorized [id number] Authorized Specialty Services Required 08/29/2023 08/28/2024 1 1 Encounter Details Date Type Department Care Team (Late st Contact Info) Description 09/28/2023 10:40 AM CDT Office Visit [facility] Sleep Medicine [address] [place] [address] Jaciel Simon MD [address] [address] JAM (obstructive sleep apnea) (Primary Dx); Chronic [...] any clubs o r organizations such as orthodoxy groups, unions, fraternal or athletic groups, or [...] Date Recorded PHQ-9 Total Score 0 08/29/2023 [facility] [place] of Occupat ional Health - Occupational Stress [...] place to sleep or slept in a [place] health care facility (including now)? No 08/29/2023 Sex and Gender [...] not excessively sleepy during the day her [place] score is 7 She goes to bed [...] spent this visit is 61 minutes including isub-lh-zcut encounter, chart review, patient counseling, patient education, [...] unspecified documented in this encounter Care Teams Mental Health Unit Lead Psychologist Relationship Specialty Start Date End Date Latonya Staton DNP, CLERICAL SUPERVISOR, HYBRID TESTER [address], [place] [address] PCP - General Internal Medicine 08/29/23 documented as of this encounter
--- OUTSIDE RECORDS SUMMARY | 2023-12-06 14:33 | XMS_ITS | Clinical Summary ---
Author Organization [facility] Address [address] [place] [address] Care Team Providers Care Agricultural Technical Officer Name Role Phone Unavailable Primary Care Provider Unavailabl e Source Comments Patient records contain information from all sites at [facility]. For routine questions regarding patient records, call [phone] during business hours, M-F 8:00 AM - 5:00 PM Central Time. Record requests for emergency care only can be directed to [phone] at any time.[facility] Allergies Active Allergy Reactions Criticality Noted [...] Medical History Relation Name Comments Arthritis Father [place] Pancreatic cancer Father [place] Coronary artery disease Mother Tati 1993 Breast cancer Mother's Sister Ester 1993 Relation Name Status Comments Father [place] Mother Tati Mother's Sister Ester Social History [...] week 02/17/2022 How often do you attend [facility] or presybeterian services? More than 4 times per year 02/17/2022 Do you belong to any clubs o r organizations such as baptist groups, unions, fraternal or athletic groups, or [...] and heating? Not hard at all 02/17/2022 [facility] [place] of Occupat ional Health - Occupational Stress [...] slept in a fpc (including now)? No 02/17/2022 Nutrition Answer Date [...] Master's degree (e.g., MA, MS, Pita, MEd, STATISTICAL MODELER, TYREE) 04/26/2020 Sex and Gender Information Value Date Recorded Sex Assigned at Female 04/25/2020 3:40 PM FITNESS INSTRUCTOR Gender Identity Female 04/25/2020 3:39 PM FITNESS INSTRUCTOR Sexual Orientation Straight 04/25/2020 3: 39 PM FITNESS INSTRUCTOR Last Filed Vital Signs Vital Sign Reading [...] Fall Risk Screen (Annual) 06/18/2023 COVID-19 Vaccine (2022-07 4 season) 2023 04/18/2023, 03/31/2022, 01/03/2022, Additional history exists DTaP,Tdap,and Td Vaccines (5 - Td or Tdap) 07/27/2031 07/27/2021, 03/07/2011, 12/01/2002, Additional history exists Pneumococcal vaccine (65+ years) Completed 06/05/2016, 01/25/2015, 06/16/2010 Zoster Vaccines Completed 11/13/2018, 08/16, 03/04/2009 Influenza Vaccine Completed 03/05/2023, , 03/23/2021, Additional history exists
--- OUTSIDE RECORDS SUMMARY | 2023-12-06 14:33 | XMS_ITS | Encounter Summary ---
Author Organization [facility] er Address [address] [place] [address] Care Team Providers Care Medical Management Specialist Name Role Phone Latonya Staton DNP, AGRICULTURE ENGINEER, FLAT SORTER PROCESSOR Primary Care Prov ider Reason for Visit * Reason Onset Date Comments Med Refill 10/01/2023 Encounter Details Date Type Department Care Team (Late st Contact Info) Description 10/01/2023 Refill [facility] 4th Floor [address] [place] [address] Latonya Staton, KIKE, AGRICULTURE ENGINEER, FLAT SORTER PROCESSOR [address] [place] [address] Primary insomnia Social History Tobacco Use [...] than three times a week 08/29/2023 Attends Caodaism Services Not on file 08/28 Do you [...] Date Recorded PHQ-9 Total Score 0 08/29/2023 [facility] - [...] slept in a mcc (including now)? No 08/29/2023 Sex and Gender [...] sleep documented in this encounter Care Teams Medical Management Specialist Relationship Specialty Start Date End Date Latonya Staton, DNP, AGRICULTURE ENGINEER, FLAT SORTER PROCESSOR [address] [place] [id number] PCP - General Internal Medicine 08/29/23 documented as of this encounter
--- OUTSIDE RECORDS SUMMARY | 2023-12-06 14:33 | XMS_ITS | Clinical Summary ---
Author Organization [facility] Address [place], [place] [address] Care Team Providers Care Certified Court/Medical Interpreter Name Role Phone Bela Mccoy AuD Unavailable [phone] Ast[facility], [facility] Unavailable Elena Edelmira Ames MD Primary Care Provider Unavail able Allergies Active Allergy Reactions Criticality Noted Date Comments Hymenoptera Allergenic Extract Throat Swelling/Closing,Humera phylaxis High 11/22/2012 Needs epi pen Needs epi pen Erythromycin GI Upset 11/28/2006 Penicillins Rash 11/28/2006 Prednisone Agitation,Anxiety 05/22/2014 overeating overeating Medications Medication Sig Dispensed Refills Start Date End Date Status ibuprofen (ADVIL; MOTRIN) 200 mg tabletIndications: Neck pain Take 4 tablets by mouth 3 [...] 04/01/2020 Active EPINEPHrine (EPIPEN) 0.3 mg/0.3 mL injectionIndicatio ns:Bee sting allergy Inject 0.3 mg intramuscular one time if needed for Allergic Reaction. 1 Each 5 04/15/2020 Active blood sugar diagnostic (FREESTYLE LITE STRIPS) stripIndications:N ewly diagnosed diabetes (HC) Dispense item covered by pt ins. E11.9 NIDDM type II - Test 4 times/day. Reason New Diagnosis 400 Each 3 05/12/2020 Active diclofenac topical (VOLTAREN) 1 % gelIndications:Sandra n in both knees, unspecified chronicity Apply 2-4 g topically to affected area(s) 4 times daily. 1 Tube 3 09/02/2020 Active fexofenadine (PURA) 180 mg tabletIndications: Seasonal allergies Take 180 mg by mouth once daily. Do not crush or chew. 90 Tablet 3 11/02/2020 Active aspirin 81 mg cap Take by mouth. 0 08/02/2021 Act mt amLODIPine (NORVASC) 2.5 mg tabletIndications: HTN (hypertension) Take 2 Tablets (5 mg) by mouth once daily. 90 Tablet 1 08/30/2021 Active Additional Information Patient taking differently: 10 mgOral DAILY, Reported on 09/19/2023 diphenhydrAMINE (BENADRYL) 25 mg capsule Take 1 Capsule (25 mg) by mouth every 4 hours if needed. 0 06/29/2022 Active CPAPIndications:OS A (obstructive sleep apnea) CPAP machine for home use at pressure 5-16 cmw, full face mask x1/3month with a full face cushion x1/3month 1 Each 11 08/08/2022 Active simvastatin (ZOCOR) 20 mg tablet Take 20 mg by mouth at bedtime. 04/23/2023 Active traZODone (DESYREL) 50 mg tablet Take 50 mg by mouth at bedtime. 08/29/2023 Active Active Problems Problem Noted Date Diagnosed Date History of diabetes mellitus 09/02/2020 Overview: Diagnosed with DM March 2020 with A1C = 6.8 Changed diet significantly Seeing [facility] A1C Jul 2020 = 5.6 HTN [...] Type Department Care Team Description 09/21/2023 Telephone [facility] [address] [place] [address] Amelie Pettit, DO Results 09/19/2023 2:15 PM CDT Ancillary Procedure [address] [address] 09/19/2023 2:00 PM CDT Ancillary Procedure [address] [address] 09/19/2023 1:10 PM CDT Office Visit [address] [address] Amelie Pettit, DO Leg Pain/problem (Legs have been painful on and off when sitting for long periods of time. Now having burning and pain in the mornings before getting up. Also having sciatic nerve pain. patient would like xrays ) 09/18/2023 Travel 09/11/2023 Telephone [facility] [address] [place] [address] Edelmira Augustine MD Appointment Request from Last 3 Months Immunizations Name Administration Dates Next Due Amb Influenza, Inact (High-d ose) (Flu Clinic Only) 03/11/2014 COVID-19 vaccine ([email or web address] NTech 30mcg/0.3mL) PF, MDV 09/07/2020,08/17/2020 DT (Age < 7 years) [...] Outcome GA Total Labor Labor/2nd/3rd Weight Sex Type Anes PTL Dorothy A1 A5 Name Clin Last Filed Vital Signs Vital Sign Reading Time Taken Comments Blood Pressure 134/72 09/19/2023 1:17 PM CDT Pulse 64 09/19/2023 1:17 PM CDT Temperature 36.5 ??C (97.7 ??F) 11/13/2018 2:04 PM CD T Respiratory Rate 20 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 Oxygen Saturation 97% 09/19/2023 1:17 PM CDT [...] Wellness for age 65+ 09/03/2021, 04/15/2019, 03/08/2018 COVID-19 vaccine series ( season) 2023 04/18/2023, 03/31/2022, 01/03/2022, Additional history exists Influenza for age 65+ 02/17/2024 04/01/2020 , 04/07/2019, 03/08/2018, Additional history exists Tdap Completed 03/07/2011 Hepatitis C screening for ag e 18-79 Completed 12/29/2013 Pneumococcal series for age 65+ Completed 06/05/2016, 01/25/2015, 06/16/2010 Zoster (shingles) series for age 50+ Completed 11/13/2018, 08/30/2018, 03/04/2009 CT Colonography for age 45-75 Discontinued 02/14/2019 DEXA/DXA scan for age 65+ Completed 2018, 11/22/2012, 06/16/2010 Procedures Procedure Name Priority Date/Time Associated Diagnosis [...] For Patients: ??As a result of the 21st Century Cures Act, medical imaging exams and procedure [...] ve Non-Reacti ve 12/29/2013 8:10 PM CDT [facility] Blood specimen (specimen) BLOOD SPECIMEN / Unknown Venipuncture / Unknown 12/29/2013 2:55 PM CDT 12/29/2013 2:56 PM CDT Narrative [facility] - 12/29/2013 8:10 PM CDT Antibodies to HCV not detected; does not exclude the possibility of exposure to HCV. Martine Daniels MD SEND OUTS [facility] [address] [place] [address], [place] from Last 3 Months or Most Recently Relevant to Health Maintenance Care Teams Certified Court/Medical Interpreter Relationship Specialty Start Date End Date Edelmira Augustine MD PCP - General 06/27/22 Bela Mccoy AuD Audiology 09/30/08 [facility] 02/12/17
--- OUTSIDE RECORDS SUMMARY | 2023-12-06 14:33 | XMS_ITS | Clinical Summary ---
Author Organization [facility] er Address [address] [place] [address] Care Team Providers Care Stewarding Supervisor Name Role Phone Latonya Staton DNP, ARCHITECTURAL PROJECT CAPTAIN, PREPARATOR Primary Care Prov ider Allergies Active Allergy Reactions Criticality Noted Date Comments Erythromycin Nausea And Vomiting 08/29/2023 Penicillins Shortness of breath,Swelling High 2023 Medications Medication Sig Dispensed Refills Start Date End Date Status AMLODIPINE BESYLATE PO Take 10 mg by mouth daily Active aspirin 81 MG chewable tablet Chew 1 tablet (81 mg total) 1 (one) time each day Active Calcium Carb-Cholecalciferol (CALCIUM 600 + D PO) Take 1 tablet by mouth daily Active cholecalciferol (VITAMIN D-3 SUPER STRENGTH) 50 MCG (2000 UT) tablet Take 1 tablet (2,000 Units total) by mouth 1 (one) time each day Active B-COMPLEX, FOLIC ACID, PO Take 1 tablet by mouth daily Active simvastatin (ZOCOR) 20 MG tablet Take 1 tablet (20 mg total) by mouth every night Active diphenhydrAMINE (BENADRYL) 25 MG tablet Take 1 tablet (25 mg total) by mouth at night if needed for sleep Active MAGNESIUM GLYCINATE PO Take 240 mg by mouth at bed time Active traZODone (DESYREL) 50 MG tabletIndications:Pr imary insomnia Take 1 tablet (50 mg total) by mouth at night if needed for sleep 90 tablet 10/01/2023 12/30/2023 Active Active Problems Problem Noted Date Diagnosed Date Chronic insomnia 09/28/2023 JAM (obstructive sleep apnea) 09/28/2023 Encounters Date Type Department Care Team Description 10/01/2023 Telephone [facility] 52 Sleep Medicine [address] [phone] Jaciel Simon MD 10/01/2023 Refill [facility] 4th Floor [address] [place] [address] Latonya Staton, DNP, ARCHITECTURAL PROJECT CAPTAIN, PREPARATOR Primary insomnia 10/01/2023 Telephone [facility] Sleep Medicine [address] [address] Jaciel Simon MD 09/29/2023 4:20 PM CDT Ancillary Procedure [facility] [address] [place] [address] JAM (obstructive sleep apnea) (Primary Dx) 09/28/2023 11:40 AM CDT Clinical Support [facility] Sleep Medicine [address] [place] [address] JAM (obstructive sleep apnea) 09/28/2023 10:40 AM CDT Office Visit [facility] Sleep Medicine [address] [place] [address] Jaciel Simon MD JAM (obstructive sleep apnea) (Primary Dx); Chronic insomnia from Last 3 Months Social History Tobacco [...] than three times a week 08/29/2023 Attends Shinto Services Not on file 08/28 Do you belong to any clubs o r organizations such as hoahaoism groups, unions, fraternal or athletic groups, or [...] Date Recorded PHQ-9 Total Score 0 08/29/2023 [facility] - Occupational Stress Questionnaire Answer Date [...] on patient's age to complete this topic Procedures Procedure Name Priority Date/Time Associated Diagnosis Comments MAMMO BREAST SCREENING TOMOSYNTHESIS BILATERAL Routine 04/21/2020 10:38 AM SOCIAL MEDIA DESIGNER from Last 3 Months or Most Recently Relevant to Health Maintenance Care Teams Stewarding Supervisor Relationship Specialty Start Date End Date Latonya Staton, DNP, ARCHITECTURAL PROJECT CAPTAIN, PREPARATOR [address] [place] [address] PCP - General Internal Medicine 08/29/23
--- OUTSIDE RECORDS SUMMARY | 2023-12-06 14:33 | XMS_ITS | Encounter Summary ---
Author Organization [facility] er Address [address] [place] [address] Care Team Providers Care Secretary Specialist Name Role Phone Latonya Staton DNP, COMPLAINT EVALUATION OFFICER, BICYCLE ASSEMBLER Primary Care Prov ider Encounter Details Date Type Department Care Team (Latest Contact Info) Description 09/28/2023 11:40 AM CDT Clinical Support [facility] [address] [place] [phone] JAM (obstructive sleep apnea) Social History Tobacco [...] than three times a week 08/29/2023 Attends Sabianist Services Not on file 08/28 Do you belong to any clubs o r organizations such as mandaeism groups, unions, fraternal or athletic groups, or [...] Date Recorded PHQ-9 Total Score 0 08/29/2023 [facility] - Occupational Stress Questionnaire Answer Date Recorded [...] place to sleep or slept in a skilled nursing (including now)? No 08/29/2023 Sex and Gender Information Value Date Recorded Sex Assigned at Not on file Gender Identity Not on file Sexual Orientation Not on file documented as of this encounter Plan of Treatment Not on file documented as of this encounter Visit Diagnoses Diagnosis JAM (obstructive sleep apnea) Obstructive sleep apnea (adult) (pediatric) documented in this encounter Care Teams Secretary Specialist Relationship Specialty Start Date End Date Latonya Staton, KIKE, COMPLAINT EVALUATION OFFICER, BICYCLE ASSEMBLER [address] [address] PCP - General Internal Medicine 08/29/23 documented as of this encounter
--- OUTSIDE RECORDS SUMMARY | 2023-12-06 14:33 | XMS_ITS | Encounter Summary ---
Author Organization [facility] er Address [address] [place] [address] Care Team Providers Care X Ray Equipment Tester Name Role Phone Latonya Staton DNP, X RAY OPERATOR, INDUSTRIAL ROBOTICS MECHANIC Primary Care Prov ider Encounter Details Date Type Department Care Team (Late st Contact Info) Description 10/01/2023 Telephone [facility] [address] [facility] [address] [address] Jaciel Simon MD [address] [address] Social History Tobacco Use Types [...] than three times a week 08/29/2023 Attends Episcopalian Services Not on file 08/28 Do you belong to any clubs o r organizations such as hindu groups, unions, fraternal or athletic groups, or [...] Date Recorded PHQ-9 Total Score 0 08/29/2023 [facility] Occupat ional Health - Occupational Stress [...] place to sleep or slept in a residential (including now)? No 08/29/2023 Sex and Gender [...] Patient will be bringing in PAP to [facility] for download. Reminder created. Thanks! documented in this encounter Plan of Treatment Not on file documented as of this encounter Visit Diagnoses Not on filedocumented in this encounter Care Teams X Ray Equipment Tester Relationship Specialty Start Date End Date Latonya Staton, KIKE, X RAY OPERATOR, INDUSTRIAL ROBOTICS MECHANIC [address] [place] [address] PCP - General Internal Medicine 08/29/23 documented as of this encounter
--- OUTSIDE RECORDS SUMMARY | 2023-12-06 14:33 | XMS_ITS | Encounter Summary ---
Author Organization [facility] er Address [address] [place] [address] Care Team Providers Care Nitrator Operator Name Role Phone Latonya Staton DNP, COOLER OPERATOR, TRANSPORTATION TECHNICIAN Primary Care Prov ider Encounter Details Date Type Department Care Team (Late st Contact Info) Description 10/01/2023 [facility]phone [facility] Medicine [facility] [address] [address] Jaciel Simon MD [address] [address] Social History Tobacco Use Types [...] than three times a week 08/29/2023 Attends Zoroastrianism Services Not on file 08/28 Do you belong to any clubs o r organizations such as gnosticist groups, unions, fraternal or athletic groups, or [...] Date Recorded PHQ-9 Total Score 0 08/29/2023 [facility] of Occupat ional Health - Occupational Stress [...] place to sleep or slept in a halfway (including now)? No 08/29/2023 Sex and Gender [...] for 3 months if possible to her [facility] pharmacy. She requested call back with update [phone]. documented in this encounter Plan of Treatment Not on file documented as of this encounter Visit Diagnoses Not on filedocumented in this encounter Care Teams Nitrator Operator Relationship Specialty Start Date End Date Latonya Staton, DNP, COOLER OPERATOR, TRANSPORTATION TECHNICIAN [facility] [address] [address] PCP - General Internal Medicine 08/29/23 documented as of this encounter
--- OUTSIDE RECORDS SUMMARY | 2023-12-06 14:33 | XMS_ITS | Encounter Summary ---
Author Organization [facility] er Address [address] [place] [address] Care Team Providers Care Blackjack Supervisor Name Role Phone Latonya Staton DNP, GOLD PROSPECTOR, DINKEY MECHANIC Primary Care Prov ider Encounter Details Date Type Department Care Team (Latest Contact Info) Description 09/29/2023 4:20 PM CDT Ancillary Procedure [facility] Sleep [address] [place] [address] JAM (obstructive sleep apnea) (Primary Dx) [...] than three times a week 08/29/2023 Attends Scientologist Services Not on file 08/28 Do you belong to any clubs o r organizations such as restorationist groups, unions, fraternal or athletic groups, or [...] Date Recorded PHQ-9 Total Score 0 08/29/2023 [facility] of Occupat ional Health - Occupational Stress [...] (pediatric) documented in this encounter Care Teams Blackjack Supervisor Relationship Specialty Start Date End Date Staton, Latonya, KIKE, GOLD PROSPECTOR, [place] [address] PCP - General Internal Medicine 08/29/23 documented as of this encounter
--- NOTE | 2023-12-06 14:40 | CRLHL7_ITS ---
For Patients: As a result of the Century Cures Act, medical imaging exams and procedure reports are released immediately into your electronic medical record. You may view this report before your referring provider. If you have questions, please contact your health care provider. BILATERAL SCREENING MAMMOGRAM WITH COMPUTER-AIDED DETECTION AND TOMOSYNTHESIS TECHNIQUE: CC and MLO views were obtained. These mammographic images have been obtained using full-field digital technique. These mammographic images were interpreted with the benefit of computer-aided detection. Breast Tomosynthesis was used in this interpretation. COMPARISON FILM: 07/19/22, 10/05/21, 04/21/20. FINDINGS: There are scattered areas of fibroglandular density. IMPRESSION: There is no radiographic evidence for malignancy. ASSESSMENT: BI-RADS Category 1: Negative RECOMMENDATION: Routine screening mammogram in 1 year. A lay language report of this examination will be provided to the patient. Ortega Washington M.D. Diagnostic Radiologist [email or web address] SP/Dictated by: Ortega Washington MD @ 12/07/2023 9:58:00 AM (Electronically Signed)
== END 2023-12-06 14:31 | disposition home or self-care (01) ==
LOC: MAMMO 14:31
PROVIDERS: PCP Internal Medicine; Visit Provider Internal Medicine
DX: Z12.31 Encounter for screening mammogram for malignant neoplasm of breast (principal)
CPT/HCPCS: 77063; 77067

== ENCOUNTER 2024-07-18 09:58 | Outpatient (CLI) | payer MEDICARE, OTHER, SELFPAY ==
--- NOTE | 2024-07-18 11:49 | W.ANESCHARGE ---
Anesthesia Charges Start Date/Time Anesthesia Start Date: 07/18/24 Anesthesia Start Time: 11:20 Stop Date/Time Anesthesia Stop Date: 07/18/24 Anesthesia Stop Time: 11:41 Summary Extremes of Age - Over 70 or under 1: AGENCY APPOINTMENTS SUPERVISOR Coding CPT Codes CPT Codes: ANES LWR INTST NDSC NOS - 02537 ([id number]) P3 - PATIENT W/SEVERE SYS DISEASE, QK - VALET MANAGER 2-4 CNCRNT ANES PROC, QX - AGENCY APPOINTMENTS SUPERVISOR SVC W/ MD MED DIRECTION Additional Codes: Summary - Extremes of Age - Over 70 or under 1: AGENCY APPOINTMENTS SUPERVISOR ([id number])
--- NOTE | 2024-07-18 11:55 | W.ANESCHARGE ---
Anesthesia Charges Start Date/Time Anesthesia Start Date: 07/18/24 Anesthesia Start Time: 11:20 Stop Date/Time Anesthesia Stop Date: 07/18/24 Anesthesia Stop Time: 11:41 Summary Extremes of Age - Over 70 or under 1: MDA Coding CPT Codes CPT Codes: ANES LWR INTST NDSC NOS - 58191 ([id number]) QK - SENIOR SOFTWARE PROJECT MANAGER 2-4 CNCRNT ANES PROC, QX - DRUG SAFETY PHYSICIAN SVC W/ MD MED DIRECTION, P3 - PATIENT W/SEVERE SYS DISEASE Additional Codes: Summary - Extremes of Age - Over 70 or under 1: MDA ([id number])
== END 2024-07-18 09:59 | disposition home or self-care (01) ==
LOC: OP CLINIC 09:59
PROVIDERS: PCP Internal Medicine; Visit Provider Internal Medicine Gastroenterology
DX: Z12.11 Encounter for screening for malignant neoplasm of colon (principal); D12.0 Benign neoplasm of cecum; Z86.0100 Personal history of colon polyps, unspecified
CPT/HCPCS: 00811; 45380; 88305; 99100; J2704

== ENCOUNTER 2024-09-17 13:12 | Outpatient (CLI) | payer MEDICARE, OTHER, SELFPAY | END 2024-09-17 13:13 | disposition home or self-care (01) | LOC: NFLDREF 09-21 17:02 | PROVIDERS: PCP Internal Medicine; Referring Provider Internal Medicine; Visit Provider Internal Medicine | DX: E11.9 Type 2 diabetes mellitus without complications (principal); E78.5 Hyperlipidemia, unspecified; I10 Essential (primary) hypertension | CPT/HCPCS: 80053; 80061; 82043; 82570 ==

== ENCOUNTER 2024-10-22 10:00 | Outpatient (RCR) | payer MEDICARE, OTHER, SELFPAY ==
--- NOTE | 2024-10-22 13:04 | OT.OPLE2 ---
OT Outpatient Lymphedema Eval* OT Outpatient Lymphedema Eval* Start: 10/22/24 12:20 Freq: Status: Active Protocol: Document 10/22/24 12:21 LCN (Rec: 10/22/24 12:24 LCN [id number]) E-signed By Angelica Beltrán OTR/Declan, [facility] OT Outpatient Evaluation Details Type Type Eval Complexity Low Insurance Information Insurance Information Insurance Information Medicare B Insurance Information Comments With for Life. Home Program Home Program Home Program Initiated Home Program Specifics To support further girth reduction and improved skin mobility,?OTR instructs pt in HEP from visual aide with deep breaths x 5, MLD LN facilitation (x [address] each, guiding for gentle pressure) above clavicle/Terminus, axilla, inguinal LN, lateral trunk ING to AX, and pumping exercises (x 10 reps each) w trunk rotation, bridging, alternating heel slides and ankle circles/toe curls. Pt able to return demo of HEP. Given ways to incorporate into daily routines as mid days breaks to boost lymph pumping. ?Complete in supine or reclined position to support lymphatic return. Complete before walking/fitenness/ gardening tasks. Elevate 1-2 hours /day to reduce venous/ lymphatic pressure. 3 OT OP Lymphedema Evaluation Current Condition/Medical Diagnosis Referring Provider Dr. Augustine Medical Diagnoses B LE Lymphedema I89.0 Treatment Diagnosis leg heaviness, nerve irritation, skin changes Date Of Onset 09/22/24 Medical History Medical History Cancer Treatment/Surgery, Obesity Medical History Comments Cataract repair. Hip OA, B knee pain. Basal Cell cancer excision, stapedectomy, mammoplasty reduction, nasal septoplasty, appendectomy 2010, cholecystectomy 05/2013. Pre-Diabetic. Venous laser treatments to reduce pain, size of varicosities > 5 yrs ago, very helpful locally, but lower legs are having more spongy pitting edema for mid to lower tibial shafts to toes dorsal web spaces. Contraindications Contraindications Comments allergy:penicillin, erythromycin, prednisone ( anxiety). Family History Family History of Lymphedema Yes Family History of Lymphedema Comments Grandmother/maternal. had lots of vein procedures and heavy painful legs, used compression stockings. Current Work Status Current Work Status Retired Current Work Status Comments Worked in [employer] 30 years. Subjective Subjective Perla Hare is a youthful 79 y/o female who has been working with this OTR to address her L thumb pain at [facility] to [place] area and has really improved. Using a donning frame for her compression stockings and contrast baths with daily hand care regimen been really helpful. Pt continues to have B LE heaviness, skin changes and fibrotic changes in B LE and want to prevent needing further care for lymphedema sequelae. Living Situation Current Living Situation w family Current Living Situation Comments Very active, daughter, son in law and 13 y/o grand dtr live with her. Does [employer] and [employer], [employer]. Walks and swims in the summer/ has pool and stationary bike. lost her in 2018, was in a care center. Patient Difficulties Patient Difficulties Comments Legs get sore with standing, fluctuating edema in the heat, dry itchy skin that can craack open, large scaley flaking. Toes are getting more stiff. Impairments Impairments Loss of Mobility,Limb Heaviness Impairments Comments no recent falls. Problem List Problem List Limited Knowledge of Lymphedema Treatment/Condition /Precautions,Limited Knowledge of Skin Care & Infection Precautions,Significant Risk For Infection For Lymphedema Related Complications,Does Not Have a HEP,Does Not Have Appropriate Compression Garments For LT Management Problem List Comments Pt has been using leftover compression stockings from her and would benefit from custom fitting. Exercise History Does Patient Exercise Regularly Yes Exercise Comments Walking and swimming, gardening in the summer. Very active durig the day. Will take effort to work elevation of LE into her daily routine. Pain Pain Yes Pain Comments Sensory changes in the bottoms of her feet. Skin at the ball of B feet feels like an altered sticky sensation under her foot, mild numbness. ROM/Strength ROM/Strength Comments WNL for knee/flexion, ankle a dorsi and plantar flexion. Difficult to curl and separate toes. No recent falls, able to manage unpaved grassy surfaces . Previous Treatment Previous Treatment For Swelling/ Compression Garment Lymphedema Previous Treatment/Current Home Program OTC compression hose, never fit right, cut into her upper calves. Compression History Does Patient Currently Wear Compression No During Daytime Compression During Daytime Comments Irregular use due to her hand pain and that they are ill fitting OTC stockings for her. Current Swelling (Location/Pitting/Texture) Pitting Scale: 0 = No pitting 1+ Tissue returns to normal almost immediately 2+ Tissue returns after 15-30 seconds 3+ Tissue returns after 1-1/2 minutes 4+ Tissue returns after 2-3 minutes N/A Tissue no longer pits due to induration Tissue texture: Soft or indurated Clinical Presentation Area B Lower 2/3 of tibial shafts. Triggering Event & Start Date of after having had venous laser Swelling/Lymphedema treatments > 5 years ago. Clinical Presentation Pitting/Texture 5 sec rebound for B pretibial areas. Brisk capillary refill . (+) Stemmer's sign. Skin Changes Hemosiderin Staining, Hyperkeratosis,Toe/Foot Deformities,Fibrosis,Limited Skin Mobility Skin Changes Comments red flocked, blotchy color changes/hemosiderin staining lower 1/2 of tibial shafts to feet, cocoa coloring at toes. Sub malleolar pocketing of spongy edema. Fullness at dorsal toe web spaces, makes toe curl and toe abduction to 30-50% of full arc. Positive Stemmer's Sign Yes Capillary Refill Brisk Type of Swelling Secondary Staging Staging Stage 2 Circumferential Measurements Lower Extremity Left Lower Extremity Great Toe (in cm) 8.3 MTP (in cm) 22.3 Arch (in cm) 21.5 Distance Between MTP's and Arch 5 Circumference Measurement Calcaneus (in cm) 30.8 Distance Between Arch and Calcaneus 11 Circumference Measurement 10 cm above Calcaneus Measurement 20.3 20 cm above Calcaneus Measurement 26.5 30 cm above Calcaneus Measurement 34.4 40 cm above Calcaneus Measurement 32 50 cm above Calcaneus Measurement 39.5 Total Girth in cm 235.6 Right Lower Extremity Great Toe (in cm) 8.7 MTP (in cm) 23.3 Arch (in cm) 22.2 Distance Between MTP's and Arch 5 Circumference Measurement Calcaneus (in cm) 31.7 Distance Between Arch and Calcaneus 11 Circumference Measurement 10 cm above Calcaneus Measurement 21 20 cm above Calcaneus Measurement 26 30 cm above Calcaneus Measurement 34 40 cm above Calcaneus Measurement 31.7 50 cm above Calcaneus Measurement 39.7 Total Girth in cm 238.3 Assessment Assessment Pt with Impaired integrity of skin & lymphedema lead to increased risk infection & skin breakdown.?Pt c/o leg heaviness, toe stiffness, sensory and skin tissue texture changes d/t bulk of swelling in legs. Pt would benefit from skilled OT to support longer term mgmt of her B LE lymphedema including skin care/ precautions, graduated compression bandaging progressing to final compression garments with appropriate adaptations, MLD and home exercise program Patient Goals Patient Goals To be able to manage her swelling on her own. Short Term Goals (# of Weeks) 2 Click To Default Short Term Goals Standard Goals Short Term Goals 1 Goal: Patient and or caregiver will understand lymphedema precautions to decrease risk of infection and further lymphedema related complications 2 Goal: Patient will perform self MLD protocol with minimal assistance to help reduce swelling and improve ROM and mobility Assisted Goals (# of Weeks) 8 Click To Default Assisted Goals Standard Goals Assisted Goals 1 Goal: Patient will be independent with donning and doffing of compression garments which will enable regular daily garment wear 2 Goal: Patient will achieve a specific reduction of 5 cm from total measurements for B LE to enable functional improvements such as improved sensation of her feet, reduced leg pressure while standing > 20 min while cooking. 3 Goal: Patient will be independent with HEP and lymphedema management to reduce risk for edema relapse and to reduce risk for infection Treatment Plan Treatment Plan Evaluation,Edema Control, Manual Therapy,Therapeutic Exercise,Self-Care/Home Management,Education Other Treatment Plan compression fitting, AE tool use education for preventing flare up of TH OA. Expected Frequency 1x Week Expected Duration 6-8 Weeks Certification Certification Statement I Certify That: Therapy Services Provided, Therapy Plan Established, Therapy Plan Reviewed Certification Information Clinic ID # [id number] Initial Certification Date 10/22/24 Recertification Due Date 01/20/25 Provider Signature Required Yes Provider Signature Shows Agreement With POC & Medical Necessity Physician NPI Number Write NPI# Here Physician Comment/Change Comment or Changes Physician Signature & Date Requested Please Sign/Date Here
== END 2025-02-19 23:59 | disposition home or self-care (01) ==
PROVIDERS: PCP Internal Medicine; Visit Provider Internal Medicine
DX: M18.12 Unilateral primary osteoarthritis of first carpometacarpal joint, left hand (principal); I89.0 Lymphedema, not elsewhere classified; Z51.89 Encounter for other specified aftercare
CPT/HCPCS: 97035; 97110; 97140; 97165; 97530; 97535; X5282

== ENCOUNTER 2024-12-31 11:07 | Outpatient (CLI) | payer MEDICARE, OTHER, SELFPAY ==
--- NOTE | 2024-12-31 11:30 | CRLHL7_ITS ---
For Patients: As a result of the Century Cures Act, medical imaging exams and procedure reports are released immediately into your electronic medical record. You may view this report before your referring provider. If you have questions, please contact your health care provider. INDICATION: BILATERAL SCREENING MAMMOGRAM, ASYMPTOMATIC 79 Y/O FEMALE COMPARISON: 12/06/2023, 07/19/2022, 10/05/2021 TECHNIQUE: Digital mammogram in CC and MLO projections including computer-aided detection (CAD) and tomosynthesis. BREAST COMPOSITION: There are scattered areas of fibroglandular density. FINDINGS: No suspicious findings. ASSESSMENT: BI-RADS 1 Negative RECOMMENDATION: Annual screening mammogram. A lay language report of this examination will be provided to the patient. Dictated by: Ortega Washington MD @ 01/01/2025 12:10:43 (Electronically Signed)
== END 2024-12-31 11:08 | disposition home or self-care (01) ==
LOC: MAMMO 11:08
PROVIDERS: PCP Internal Medicine; Visit Provider Internal Medicine
DX: Z12.31 Encounter for screening mammogram for malignant neoplasm of breast (principal)
CPT/HCPCS: 77063; 77067

== ENCOUNTER 2025-03-18 08:09 | Outpatient (CLI) | payer MEDICARE, OTHER, SELFPAY | END 2025-03-18 08:10 | disposition home or self-care (01) | LOC: NFLDREF 03-20 13:52 | PROVIDERS: PCP Internal Medicine; Referring Provider Internal Medicine; Visit Provider Internal Medicine | DX: M81.0 Age-related osteoporosis without current pathological fracture (principal) | CPT/HCPCS: 82043; 82306; 82570 ==

== ENCOUNTER 2025-03-19 11:02 | Outpatient (CLI) | payer MEDICARE, OTHER, SELFPAY | END 2025-03-19 11:03 | disposition home or self-care (01) | LOC: NFLDREF 03-24 01:52 | PROVIDERS: PCP Internal Medicine; Referring Provider Internal Medicine; Visit Provider Internal Medicine | DX: E11.9 Type 2 diabetes mellitus without complications (principal); M81.0 Age-related osteoporosis without current pathological fracture | CPT/HCPCS: 82043; 82570 ==